=== PATIENT | male | born 1960 | race African-American/Black ===

== ENCOUNTER 2024-08-30 14:24 | Inpatient (IN) | payer MEDICARE, SELFPAY ==
[2024-08-30] VITALS (9 sets, daily range): BP systolic 114–161; BP diastolic 79–101; PULSE 24–125; RESP 18–28; TEMP 36.6–38.2; O2SAT 87–100; BMI 27.7
--- NOTE | ~2024-08-30 | XR_ITS ---
EXAMINATION: XR chest 1V portable DATE: 09/02/2024 09:20 INDICATION: Pneumonia. TECHNIQUE: A single frontal view of the chest was obtained. COMPARISON: Chest single view 08/30/2024, chest CT 08/30/2024 FINDINGS: There are airspace opacities in right lower lung zone and left mid and lower lung zones. No pleural effusion or pneumothorax. Cardiomegaly is noted. IMPRESSION: 1. Stable airspace opacities in right lower lung zone and left mid and lower lung zones, consistent w ith pneumonia. 2. Cardiomegaly. Reviewed, dictated and finalized at location B. IMPRESSION: 1. Stable airspace opacities in right lower lung zone and left mid and lower george ng zones, consistent with pneumonia. 2. Cardiomegaly.
--- NOTE | ~2024-08-30 | XR_ITS ---
EXAMINATION: XR chest 1V portable Exam Date/Time: 08/30/2024 15:30 CDT HISTORY: dyspnea Comparison: None. RESULT: Lines, tubes, and devices: None. Lungs and pleura: Low lung volumes. Patchy segmental left basilar and subsegmental right basilar airs pace disease. Cardiomediastinal silhouette: Stable. Other: No acute osseous or upper abdominal finding. IMPRESSION: Segmental left basilar atelectasis or pneumonia. Likely subsegmental right basilar atelectasis. Reviewed, dictated and finalized at location K. IMPRESSION: Segmental left basilar atelectasis or pneumonia. Likely subsegmental right basi lar atelectasis.
--- NOTE | ~2024-08-30 | CT_ITS ---
EXAMINATION: CTA chest PE protocol DATE: 08/30/2024 16:34 INDICATION: dyspnea, L chest pain, elevated d dimer TECHNIQUE: Computed tomography angiography (CTA) of the chest was performed with intravenous contrast timed to evaluate the pulmonary arteries. Coronal maximum intensity projection 3D-reconstructions we re created by the technologist. The dose-length product (DLP) was 463.27 mGy-cm. Automated exposure c ontrol and iterative reconstruction technique were employed. COMPARISON: X-ray chest, same date. FINDINGS: Lung parenchyma and airways: Segmental consolidation in the inferior lingula. Bilateral dependent ate lectasis. Patent airways. Pleura: Unremarkable. Thoracic inlet, axillae and chest wall: Unremarkable. Thoracic aorta: No significant dilation. No dissection. Mild calcified and noncalcified plaque. Mediastinum: Normal. Heart and pericardium: Mild cardiomegaly. Mild aortic valve calcification.. Coronary artery calcifications: Mild. Upper abdomen: No significant finding. Bones: No acute osseous finding. Bifid right fourth rib. Pulmonary arteries: Study quality: Motion and suboptimal contrast bolus limits evaluation of subsegme ntal pulmonary arteries. No central or segmental pulmonary emboli detected. IMPRESSION: Limited evaluation of the subsegmental pulmonary arteries. No CT evidence of acute central or segment al pulmonary embolus. Segmental lingular pneumonia. Reviewed, dictated and finalized at location K. IMPRESSION: Limited evaluation of the subsegmental pulmonary arteries. No CT evidence of ac tiffanie central or segmental pulmonary embolus. Segmental lingular pneumonia.
--- NOTE | 2024-08-30 14:28 | ECG_ITS ---
Test Date: 2024-08-30 14:32:14 Measurements Intervals [place] Rate: 123 P: 28 OR: 128 QRS: 10 QRSD: 84 T: 77 QT: 292 QTc: 418 Interpretive Statements SINUS TACHYCARDIA WITH OCCASIONAL VENTRICULAR PREMATURE COMPLEXES MINIMAL VOLTAGE CRITERIA FOR LVH, CONSIDER NORMAL VARIANT [MEETS CRITERIA IN ONE OF: R(aVL), S(V1), R(V5), R(V5/V6)+S(V1)] NONSPECIFIC T-WAVE ABNORMALITY ABNORMAL RHYTHM ECG No previous ECG available for comparison Electronically Signed On 08-31-2024 11:14:27 CDT by Jc Farnsworth M.D.
--- NOTE | 2024-08-30 14:44 | ED.SOB ---
HPI - SOB/Dyspnea General Chief Complaint: Shortness of Breath/Dyspnea <Juancho Kerr PA-C - Last Filed: 08/30/24 23:14> Stated Complaint: cough, fever <Juancho Kerr PA-C - Last Filed: 08/30/24 23:14> Time Seen by Provider: 08/30/24 14:27 <Juancho Kerr PA-C - Last Filed: 08/30/24 23:14> Source: patient <LISA Gary Last Filed: 08/30/24 23:14> Mode of arrival: ambulatory <LISA Gary Last Filed: 08/30/24 23:14> Limitations: no limitations <LISA Gary Last Filed: 08/30/24 23:14> History of Present Illness HPI Narrative: This is a 64-year-old male with PMH of HTN who presents to the ED via EMS for chief complaint of shortness of breath and chest pain onset today. Patient states that over the past 2 weeks he has had flu-like symptoms with increasing productive cough. States that today he ?spit up a little blood. ? States also that he has pain that comes and goes to the left side of his chest just inferior to the left pectoral area. States that it hurts worse in certain positions, when he coughs. Denies leg swelling, palpitations, headache, abdominal pain, nausea, vomiting. <LISA Gary Last Filed: 08/30/24 23:14> Related Data Home Medications: Home Medications ?Medication ?Instructions ?Recorded ?Confirmed ?Last Taken ?Type No Home Medications 08/30/24 08/30/24 Unknown History <LISA Gary Last Filed: 08/30/24 23:14> Allergies/Adverse Reactions: Allergies Allergy/AdvReac Type Severity Reaction Status Date / Time No Known Allergies Allergy Verified 08/30/24 14:45 <LISA Gary Last Filed: 08/30/24 23:14> Review of Systems Review of Systems: All systems as dictated in HPI <LISA Gary Last Filed: 08/30/24 23:14> [facility] Social History Social History: Social History Smoking status: Never smoker Alcohol intake: current Drinks per week: 1 Substance use: never Substance use type: does not use Do You Feel Safe in your Home?: Yes Lack of Transportation: No Lack of Food: Never True Current Housing: I Have Housing Concerned About Future Housing: No Difficulty Paying Gas/Electric Bills: No Difficulty Paying for Meds: No Currently Unemployed: No Education: Decline to Answer Difficulty w/ Childcare or Family Care: No Spiritual care concerns: No <Juancho Kerr PA-C - Last Filed: 08/30/24 23:14> Exam Narrative: GENERAL: Well-appearing, well-nourished, and in no acute distress. HEAD: Normocephalic, atraumatic. EYES: PERRLA and EOMI. ENT: Nares clear, no rhinorrhea or epistaxis. Mucous membranes moist. Oropharynx without tonsillar hypertrophy exudate or other lesions. NECK: Supple. No adenopathy or masses. CHEST: Mild increased work of breathing. Saturating 98% on room air. Coarse breath sounds heard bilaterally throughout all lung monson. HEART: Regular rate and rhythm. No murmur heard. Normal peripheral pulses. ABDOMEN: Soft, nontender, nondistended, normal active bowel sounds. MSK: Normal range of motion. No edema. SKIN: Warm, dry, no rash. NEURO: Alert and oriented x4. No focal deficits. PSYCH: Normal mood and affect. Bedside focused ultrasound does not show any B lines on bilateral lungs to suggest fluid overload. Cardiac exam shows tachycardic rate with good squeeze. IVC is moderately diminished caliber <Juancho Kerr PA-C - Last Filed: 08/30/24 23:14> Course MANAGING MANAGER/PA Physician Supervision Patient's HPI, Exam, and MDM were reviewed and I agreed with the workup and disposition done in the emergency department by the MLP. I was available for consultation, but was not directly involved with patient's care nor did I evaluate the patient. <Alxei Caraballo MD - Last Filed: 08/31/24 21:29> Vital Signs Vital signs: Vital Signs Temperature 36.8 C 08/30/24 14:41 Pulse Rate 124 H 08/30/24 14:41 Respiratory Rate 28 H 08/30/24 14:41 Blood Pressure 135/101 H 08/30/24 14:41 Pulse Oximetry 98 08/30/24 14:41 Oxygen Delivery Room Air 08/30/24 14:41 Temperature 36.4 C L 08/31/24 14:00 Pulse Rate 86 08/31/24 14:00 Respiratory Rate 16 08/31/24 14:00 Blood Pressure 147/89 H 08/31/24 14:00 Pulse Oximetry 93 08/31/24 14:00 Oxygen Delivery Nasal Cannula 08/31/24 09:25 Oxygen Flow Rate 2 08/31/24 09:25 <Juancho Kerr PA-C - Last Filed: 08/30/24 23:14> Vital Signs Temperature 36.8 C 08/30/24 14:41 Pulse Rate 124 H 08/30/24 14:41 Respiratory Rate 28 H 08/30/24 14:41 Blood Pressure 135/101 H 08/30/24 14:41 Pulse Oximetry 98 08/30/24 14:41 Oxygen Delivery Room Air 08/30/24 14:41 Temperature 36.4 C L 08/31/24 14:00 Pulse Rate 86 08/31/24 14:00 Respiratory Rate 16 08/31/24 14:00 Blood Pressure 147/89 H 08/31/24 14:00 Pulse Oximetry 93 08/31/24 14:00 Oxygen Delivery Nasal Cannula 08/31/24 09:25 Oxygen Flow Rate 2 08/31/24 09:25 <Alexi Caraballo MD - Last Filed: 08/31/24 21:29> MDM - SOB/Dyspnea MDM Narrative Medical decision making narrative: This is a 64-year-old male who presents to the ED for chief complaint of productive cough and flu symptoms for the past 2 weeks with development of chest pain and shortness of breath today. He arrives via EMS with vital signs showing tachycardia and tachypnea but saturating well on room air. Stable blood pressures in the 130s. Lab work shows elevated white count of 16.3. D-dimer elevated to 2.12. Troponin is normal. BMP is unremarkable. Viral swabs negative. Chest x-ray: IMPRESSION: Segmental left basilar atelectasis or pneumonia. Likely subsegmental right basilar atelectasis. Chest CTA: IMPRESSION: Limited evaluation of the subsegmental pulmonary arteries. No CT evidence of acute central or segmental pulmonary embolus. Segmental lingular pneumonia. On arrival patient did meet SIRS criteria with suspected pneumonia as septic source. He was started on sepsis bolus fluids, started on Rocephin and azithromycin after drawing blood cultures. He did end up becoming hypoxic on room air and is doing well on 2 L nasal cannula supplementation. He is resting comfortably on re-evaluation. Tachycardia slightly improved in pressure remains stable. Discussed the case with hospitalist MANAGING MANAGER, Leeanna who recommends admission under Dr. Abad. Patient is understanding and agreeable with this plan. <Juancho Kerr PA-C - Last Filed: 08/30/24 23:14> Lab Data Result diagrams: 08/31/24 08:53 08/31/24 08:53 <Juancho Kerr PA-C - Last Filed: 08/30/24 23:14> Labs: Lab Results 08/30/24 08/30/24 08/30/24 Range/Units 14:42 15:28 17:05 WBC 16.3 H (4.5-10.0) K/mm3 RBC 4.10 L (4.6-6.20) M/mm3 Hgb 12.8 L (14.0-18.0) g/dL Hct 39.6 L (42.0-52.0) % MCV 96.6 (80-100) fl MCH 31.2 (26-34) pg MCHC 32.3 (32-36) g/dl RDW 11.8 (11.5-14.5) % Plt Count 425 H (150-375) k/mm3 MPV 11.0 H (7.4-10.4) fl Immature Gran % (Auto) 0.7 H (0-0.5) % Neut % (Auto) 79.1 H (45.5-73.1) % Lymph % (Auto) 14.1 L (18.3-44.2) % [place] % (Auto) 5.7 (2.6-8.5) % Eos % (Auto) 0.2 (0-4.4) % Baso % (Auto) 0.2 (0.2-1.2) % Lymph # (Auto) 2.30 (0.9-3.2) K/mm3 [place] # (Auto) 0.9 H (0.1-0.6) K/mm3 Eos # (Auto) 0.0 (0-0.3) K/mm3 Baso # (Auto) 0.0 (0.0-0.1) K/mm3 Abs Immat Gran (auto) 0.11 H (0.00-0.031) K/mm3 Absolute Neuts (auto) 12.9 H (1.3-6.7) K/mm3 Absolute Nucleated RBC 0.000 (0.0-0.012) K/mm3 Nucleated RBC % 0.0 (0.0-0.2) % PT 15.1 H (11.1-14.7) Seconds INR 1.2 APTT 32.3 (22.3-36.8) Seconds D-Dimer 2.12 H (<0.48) ug/mL Sodium 136 L (137-145) mmol/L Potassium 4.0 (3.4-5.0) mmol/L Chloride 103 (98-107) mmol/L Carbon Dioxide 22 (22-30) mmol/L Anion Gap 11 (4-12) mmol/L BUN 17 (9-20) mg/dL Creatinine 1.04 (0.7-1.3) mg/dL Estim Creat Clear Calc 69 ml/min Estimated GFR > 60 (59 - ) Glucose 129 H (65-110) mg/dL Lactic Acid 2.6 H (0.7-2.0) mmol/L Calcium 8.4 (8.4-10.2) mg/dL Magnesium 2.2 (1.6-2.3) mg/dL Total Bilirubin 1.4 H (0.2-1.3) mg/dL AST 26 (17-59) U/L ALT 20 (6-50) U/L Alkaline Phosphatase 104 (38-126) U/L Troponin I < 0.012 (0.000-0.034) ng/mL NT-Pro-B Natriuret Pep 146 H (19.9-100) pg/mL Total Protein 8.0 (6.3-8.2) g/dL Albumin 4.0 (3.5-5.1) g/dL Lipase 64 (23-300) U/L Urine Color Dark yellow (Yellow) Urine Appearance Clear (Clear) Urine pH 5.5 (5.0-9.0) Ur Specific [place] > 1.045 H (1.001-1.035) Urine Protein 1+ H (Negative) mg/dL Urine Glucose (UA) Negative (Negative) mg/dL Urine Ketones Trace H (Negative) mg/dL Ur Blood (Man) Trace (Negative) Urine Nitrate Negative (Negative) Urine Bilirubin 1+ H (Negative) Urine Urobilinogen 4.0 H (<2.0) mg/dL Leukocyte Esterase Rfl Negative (Negative) RANDI/UL Urine RBC 0-2 (0-2) /hpf Urine WBC 0-5 (0-3) /hpf Ur Squamous Epith Cells None seen (Few) /hpf Urine Bacteria None seen /hpf Urine Casts 0-2 Influenza A (RT-PCR) Negative (Negative) Influenza B (RT-PCR) Negative (Negative) RSV (RT-PCR) Negative (Negative) SARS-CoV-2 RNA (RT-PCR) Negative (Negative) <Juancho Kerr PA-C - Last Filed: 08/30/24 23:14> Lab Results 08/30/24 08/30/24 08/30/24 Range/Units 14:42 15:28 17:05 WBC 16.3 H (4.5-10.0) K/mm3 RBC 4.10 L (4.6-6.20) M/mm3 Hgb 12.8 L (14.0-18.0) g/dL Hct 39.6 L (42.0-52.0) % MCV 96.6 (80-100) fl MCH 31.2 (26-34) pg MCHC 32.3 (32-36) g/dl RDW 11.8 (11.5-14.5) % Plt Count 425 H (150-375) k/mm3 MPV 11.0 H (7.4-10.4) fl Immature Gran % (Auto) 0.7 H (0-0.5) % Neut % (Auto) 79.1 H (45.5-73.1) % Lymph % (Auto) 14.1 L (18.3-44.2) % [place] % (Auto) 5.7 (2.6-8.5) % Eos % (Auto) 0.2 (0-4.4) % Baso % (Auto) 0.2 (0.2-1.2) % Lymph # (Auto) 2.30 (0.9-3.2) K/mm3 [place] # (Auto) 0.9 H (0.1-0.6) K/mm3 Eos # (Auto) 0.0 (0-0.3) K/mm3 Baso # (Auto) 0.0 (0.0-0.1) K/mm3 Abs Immat Gran (auto) 0.11 H (0.00-0.031) K/mm3 Absolute Neuts (auto) 12.9 H (1.3-6.7) K/mm3 Absolute Nucleated RBC 0.000 (0.0-0.012) K/mm3 Nucleated RBC % 0.0 (0.0-0.2) % PT 15.1 H (11.1-14.7) Seconds INR 1.2 APTT 32.3 (22.3-36.8) Seconds D-Dimer 2.12 H (<0.48) ug/mL Sodium 136 L (137-145) mmol/L Potassium 4.0 (3.4-5.0) mmol/L Chloride 103 (98-107) mmol/L Carbon Dioxide 22 (22-30) mmol/L Anion Gap 11 (4-12) mmol/L BUN 17 (9-20) mg/dL Creatinine 1.04 (0.7-1.3) mg/dL Estim Creat Clear Calc 69 ml/min Estimated GFR > 60 (59 - ) Glucose 129 H (65-110) mg/dL Lactic Acid 2.6 H (0.7-2.0) mmol/L Calcium 8.4 (8.4-10.2) mg/dL Magnesium 2.2 (1.6-2.3) mg/dL Total Bilirubin 1.4 H (0.2-1.3) mg/dL AST 26 (17-59) U/L ALT 20 (6-50) U/L Alkaline Phosphatase 104 (38-126) U/L Troponin I < 0.012 (0.000-0.034) ng/mL NT-Pro-B Natriuret Pep 146 H (19.9-100) pg/mL Total Protein 8.0 (6.3-8.2) g/dL Albumin 4.0 (3.5-5.1) g/dL Lipase 64 (23-300) U/L Urine Color Dark yellow (Yellow) Urine Appearance Clear (Clear) Urine pH 5.5 (5.0-9.0) Ur Specific [place] > 1.045 H (1.001-1.035) Urine Protein 1+ H (Negative) mg/dL Urine Glucose (UA) Negative (Negative) mg/dL Urine Ketones Trace H (Negative) mg/dL Ur Blood (Man) Trace (Negative) Urine Nitrate Negative (Negative) Urine Bilirubin 1+ H (Negative) Urine Urobilinogen 4.0 H (<2.0) mg/dL Leukocyte Esterase Rfl Negative (Negative) RANDI/UL Urine RBC 0-2 (0-2) /hpf Urine WBC 0-5 (0-3) /hpf Ur Squamous Epith Cells None seen (Few) /hpf Urine Bacteria None seen /hpf Urine Casts 0-2 Influenza A (RT-PCR) Negative (Negative) Influenza B (RT-PCR) Negative (Negative) RSV (RT-PCR) Negative (Negative) SARS-CoV-2 RNA (RT-PCR) Negative (Negative) <Alexi Caraballo MD - Last Filed: 08/31/24 21:29> Discharge Plan Discharge Clinical Impression: Lingular pneumonia <Juancho Kerr PA-C - Last Filed: 08/30/24 23:14> Patient Disposition: Still a Patient <Juancho Kerr PA-C - Last Filed: 08/30/24 23:14> Condition: Stable <Juancho Kerr PA-C - Last Filed: 08/30/24 23:14>
[2024-08-30 14:50] LABS: Basophils Percent Auto 0.2 % (0.2-1.2); Eosinophils Percent Auto 0.2 % (0-4.4); Hematocrit 39.6 % (42.0-52.0); Hemoglobin 12.8 g/dL (14.0-18.0); Immature Granulocyte Absolute 0.11 K/mm3 (0.00-0.031); Immature Granulocyte Percent A 0.7 % (0-0.5); Lymphocytes Percent Auto 14.1 % (18.3-44.2); Mean Corpuscular HGB Conc 32.3 g/dl (32-36); Mean Corpuscular Hemoglobin 31.2 pg (26-34); Mean Corpuscular Volume 96.6 fl (80-100); Monocytes Absolute Auto 0.9 K/mm3 (0.1-0.6); Monocytes Percent Auto 5.7 % (2.6-8.5); Neutrophils Absolute Auto 12.9 K/mm3 (1.3-6.7); Neutrophils Percent Auto 79.1 % (45.5-73.1); Platelet Count Result 425 k/mm3 (150-375); Red Cell Distribution Width 11.8 % (11.5-14.5); White Blood Count 16.3 K/mm3 (4.5-10.0)
[2024-08-30] MEDS: ONDANSETRON INJ 4 MG/2 ML VIAL IV PUSH (14:53)
[2024-08-30] MEDS: HYDROmorphone HCL INJ (*CRX) 1 MG/ML SYR 0.5 MG IV PUSH (14:53)
[2024-08-30] MEDS: SODIUM CHLORIDE 0.9% IV 1,000 ML 999 ML IV CONT ×2 (14:54)
[2024-08-30 14:56] LABS: Lactic Acid Reflex 2.6 mmol/L (0.7-2.0)
[2024-08-30 15:23] LABS: Influenza A QL RT-PCR Negative (Negative); Influenza B QL RT-PCR Negative (Negative); RSV RNA, RT-PCR Negative (Negative); SARS-CoV-2 RNA PCR Negative (Negative)
[2024-08-30 15:44] LABS: Alanine Aminotransferase 20 U/L (6-50); Alkaline Phosphatase 104 U/L (38-126); Anion Gap 11 mmol/L (4-12); Aspartate Amino Transferase 26 U/L (17-59); Bilirubin,Total 1.4 mg/dL (0.2-1.3); Blood Urea Nitrogen 17 mg/dL (9-20); Calcium 8.4 mg/dL (8.4-10.2); Carbon Dioxide 22 mmol/L (22-30); Chloride 103 mmol/L (98-107); Estimated CRCL calculation 69 ml/min; Estimated Glomerular Filt Rate > 60; Glucose 129 mg/dL (65-110); Lipase 64 U/L (23-300); Magnesium 2.2 mg/dL (1.6-2.3); Sodium 136 mmol/L (137-145)
[2024-08-30 15:46] LABS: INR 1.2; Prothrombin Time 15.1 Seconds (11.1-14.7)
[2024-08-30 15:47] LABS: Partial Thromboplastin Time 32.3 Seconds (22.3-36.8)
[2024-08-30 15:56] LABS: NT Pro B Type Natriuretic Pept 146 pg/mL (19.9-100); Troponin I < 0.012 ng/mL (0.000-0.034)
[2024-08-30] MEDS: AZITHROMYCIN 500 MG/NS 250 ML 500 MG/250 ML BAG 250 MG IVPB (15:57)
[2024-08-30 15:58] LABS: D Dimer 2.12 ug/mL (<0.48)
--- NOTE | 2024-08-30 16:43 | PC.NURSE ---
SPO2 87% on room air. 02 placed at 2l NC.
[2024-08-30] MEDS: SODIUM CHLORIDE 0.9% IV 750 ML 999 ML IV CONT (16:45)
[2024-08-30 17:15] LABS: Add Urine Microscopic? YES; Appearance Urine Clear (Clear); Bacteria Urine None Seen /hpf; Bilirubin Urine 1+ (Negative); Blood Urine Trace (Negative); Color Urine Dark Yellow (Yellow); Glucose Urine UA Negative (Negative); Ketones Urine Trace mg/dL (Negative); Leukocyte Esterase Ur Negative LEU/UL (Negative); Nitrate Urine Negative (Negative); Non Pathogenic Casts 0-2; Protein Urine 1+ mg/dL (Negative); RBC Urine 0-2 /hpf (0-2); Specific Grav Ur > 1.045 (1.001-1.035); Squamous Epithelial Cell Urine None Seen /hpf (Few); WBC Urine 0-5 /hpf (0-3); pH Urine 5.5 (5.0-9.0)
--- NOTE | 2024-08-30 17:33 | P.HP_ITS ---
H&P: HPI History of Present Illness Date/Time: 08/30/24 17:33 Chief Complaint: Shortness of breath Narrative: 64-year-old male past medical history of hypertension presents the hospital shortness breath. Patient was brought a.m. by EMS for shortness of breath and chest pain. He states that over the last 2 weeks he has been sick with flu-like symptoms, cough, and today started having bloody sputum. The chest pain is mostly when he coughs on his left side. Patient denies chills, nausea vomiting or diarrhea. In the ED has leukocytosis at 16.3, D-dimer of 2.12, lactic acid of 2.6, total bili of 1.4, proBNP of 146, UA is noninfective, influenza A/B, RSV, COVID negative. Chest x-ray shows Segmental left basilar atelectasis or pneumonia. Likely subsegmental right basilar atelectasis. Chest CT shows no evidence PE, with Segmental lingular pneumonia. Patient coughing up copious bloody sputum. Review of Systems Review of Systems: 12 systems were reviewed and are negativ e except for as per HPI. [facility] Social History Social History Smoking status: Never smoker Alcohol intake: current Drinks per week: 1 Substance use: never Substance use type: does not use Do You Feel Safe in your Home?: Yes Lack of Transportation: No Lack of Food: Never True Current Housing: I Have Housing Concerned About Future Housing: No Difficulty Paying Gas/Electric Bills: No Difficulty Paying for Meds: No Currently Unemployed: No Education: Decline to Answer Difficulty w/ Childcare or Family Care: No Spiritual care concerns: No Meds Home Medications and Allergies Home Medications ?Medication ?Instructions ?Recorded ?Confirmed ?Type No Home Medications 08/30/24 08/30/24 History Allergies Allergy/AdvReac Type Severity Reaction Status Date / Time No Known Allergies Allergy Verified 08/30/24 14:45 Vital Signs Vital Signs - 24 hr 08/30/24 14:41 08/30/24 16:01 08/30/24 16:42 Temperature 98.3 F Pulse Rate 124 H 24 L Respiratory Rate 28 H 24 H Blood Pressure 135/101 H 159/96 H Pulse Oximetry 98 97 87 L Oxygen Delivery Room Air Nasal Cannula Oxygen Flow Rate 2 08/30/24 16:46 Temperature Pulse Rate 125 H Respiratory Rate 28 H Blood Pressure 161/90 H Pulse Oximetry 97 Oxygen Delivery Oxygen Flow Rate Exam Narrative: General: well appearing, appears stated age. HEENT: normocephalic, atraumatic. Mucous membranes moist. EOMI, PERRLA, bilateral sclera anicteric, no conjunctival injection. Neck supple without JVD, lymphadenopathy, or bruit. Respiratory: Extremely coarse Cardiovascular: Regular rate and rhythm, normal S1-S2 upon ascultation. No murmurs, rubs, or clicks. PMI is nondisplaced, capillary refill less than 3 second. Abdomen: Soft, round, no pulsatile masses, nondistended and nontender. No reboun d, no guarding. No CVA tenderness, no hepatosplenomegaly. Bowel sounds present to all four quadrants. No high pitch or tinkling sounds, resonant to percussion. Extremities: No cyanosis, clubbing, or edema present. Pulses are palpable 2/2. Active ROM to all four extremities. Neuro: Alert and orientated x 4. PERRLA. Cranial nerves 2-12 intact without focal deficit. Skin: Warm, dry, and intact, without rash, erythema, or lesion. Psych: pleasant, cooperative, normal speech, normal affect, no hallucinations, no dysarthia H&P: Results Labs Labs: Short CBC 08/30/24 Range/Units 14:42 WBC 16.3 H (4.5-10.0) K/mm3 Hgb 12.8 L (14.0-18.0) g/dL Hct 39.6 L (42.0-52.0) % Plt Count 425 H (150-375) k/mm3 BMP 08/30/24 15:28 Sodium 136 L Potassium 4.0 Chloride 103 Carbon Dioxide 22 BUN 17 Creatinine 1.04 Glucose 129 H Calcium 8.4 Cardiac Enzymes 08/30/24 Range/Units 15:28 Troponin I < 0.012 (0.000-0.034) ng/mL Liver Function 08/30/24 Range/Units 15:28 Total Bilirubin 1.4 H (0.2-1.3) mg/dL AST 26 (17-59) U/L ALT 20 (6-50) U/L Alkaline Phosphatase 104 (38-126) U/L Albumin 4.0 (3.5-5.1) g/dL Urine 03/09/25 Range/Units 17:05 Urine Color Dark yellow (Yellow) Urine Appearance Clear (Clear) Urine pH 5.5 (5.0-9.0) Ur Specific [place] > 1.045 H (1.001-1.035) Urine Protein 1+ H (Negative) mg/dL Urine Glucose (UA) Negative (Negative) mg/dL Assessment and Plan Assessment and plan (1) Lingular pneumonia: Code(s): J18.9 - Pneumonia, unspecified organism Status: Acute Assessment and Plan: On levofloxacin (2) Sepsis: Code(s): A41.9 - Sepsis, unspecified organism Status: Acute Assessment and Plan: Patient received 3 L bolus Patient started on levofloxacin Repeat lactic resolved (3) Bloody sputum: Code(s): R04.2 - Hemoptysis Status: Acute Assessment and Plan: Sputum sample Pulmonology consulted Incentive spirometer Telemetry monitoring Quality VTE Prophylaxis VTE prophylaxis: mechanical ordered If No VTE Prophylaxis Answer both mechanical and pharmacologic: Reason no pharmacologic proph: medical contraindication Hospitalist MIPS Advance Care Plan I have confirmed that the patient's Advanced Care Plan is present, code status is documented, or surrogate decision maker is listed in patient medical record.: Yes Medication Reconciliation I have utilized all available resources to obtain, update and review the patients current medications (includes all prescriptions, OTC, herbals, cannabis, and nutritional supplements).: Yes
[2024-08-30 17:45] LABS: Reflex Lactic Acid Yes or No Add Lactic
[2024-08-30] MEDS: levoFLOXacin 750 MG/D5W 150 ML 750 MG/150 ML BAG 100 MG IVPB (17:52)
--- NOTE | 2024-08-30 18:41 | PC.NURSE ---
This patient, Jorge Banerjee, was admitted to Medical Room 343-01. Patient/family oriented to hospital policies and general routines including ID bracelet, bed and alarms, visiting hours, pain management, procedures, bathroom and other care routines, personal items, smoking policy, room service/diet, and visiting hours. Information on how to activate the Rapid Response Team has been discussed. Patient/Family are encouraged to report perceived risks to care and to ask questions if they do not understand what they are told or what they should do.
[2024-08-30 19:06] LABS: Lactic Acid 1.3 mmol/L (0.7-2.0)
[2024-08-30] MEDS: SODIUM CHLORIDE 0.9% IV 1,000 ML 125 ML IV CONT (20:42)
[2024-08-30] MEDS: guaiFENesin 600 MG/DEXTROMETHORPHAN 30 MG SR TAB 12 HR 2 TAB PO (23:29)
[2024-08-31] MEDS: SODIUM CHLORIDE 0.9% IV 1,000 ML 125 ML IV CONT (03:45)
[2024-08-31 06:50] VITALS: BP 152/94; PULSE 86; RESP 18; TEMP 36.3; O2SAT 97
[2024-08-31 08:00] VITALS: O2SAT 95
--- NOTE | 2024-08-31 08:42 | P.PNIM_ITS ---
Progress Note: A&P Assessment and Plan (1) Acute respiratory failure with hypoxia: Code(s): J96.01 - Acute respiratory failure with hypoxia Status: Acute Assessment and Plan: Patient hypoxic on room air with spo2 87%, placed on 2L NC. Likely secondary to patients pneumonia - Oxygen supplementation: 2L NC, wean as tolerated for spo2 > 90% - D dimer elevated and given patients tachycardia a chest cta was obtained, no PE noted - CXR: Segmental left basilar atelectasis or pneumonia. Likely subsegmental right basilar atelectasis. - Chest CTA: No CT evidence of acute central or segmental pulmonary embolus.S egmental lingular pneumonia. - IS Weaned to room air. Saturations stable. (2) Sepsis: Code(s): A41.9 - Sepsis, unspecified organism Status: Acute Assessment and Plan: Meets SIRS criteria: tachycardia, leukocytosis, lactic acidosis, fever - lactic acid: 2.6 > 1.3 - Received 3L bolus in the ED - suspected source: pneumonia - blood cultures drawn on 08/30/2024: pending - UA nonconcerning for infection - Viral panel negative - CXR: Segmental left basilar atelectasis or pneumonia. Likely subsegmental right basilar atelectasis. - Chest CTA: No CT evidence of acute central or segmental pulmonary embolus.Segmental lingular pneumonia. (3) Lingular pneumonia: Code(s): J18.9 - Pneumonia, unspecified organism Status: Acute Assessment and Plan: CXR: Segmental left basilar atelectasis or pneumonia. Likely subsegmental right basilar atelectasis. Chest CTA: No CT evidence of acute central or segmental pulmonary embolus.Segmental lingular pneumonia. - antibiotic: rocephin and levaquin started on 08/30 - Viral PCR: negative for Flu/COVID/RSV - legionella, mycoplasma and pneumococcal ordered - Oxygen supplementation: RA - Monitor vital signs, I&Os, neuro status and patient is a fall risk - Follow WBC, serum electrolytes, temperature curves and cultures - Send sputum cultures - Oxygen via NC; wean as tolerated. Keep SpO2 greater than 88% - Pulmonology consulted positive urine test for opioid and cocaine use, and the absence of any recent altered mental status, the antibiotic regimen of ceftriaxone (dose increased per pulm) and levofloxacin is deemed appropriate. (4) Bloody sputum: Code(s): R04.2 - Hemoptysis Status: Acute Assessment and Plan: Patient endorsing bloody sputum, notes that this has improved since admission Incentive spirometer Telemetry monitoring DVT ppx: SCD (5) Cocaine abuse: Code(s): F14.10 - Cocaine abuse, uncomplicated Status: Acute Assessment and Plan: Patient denying any drug use Positive urine test for opioid and cocaine use Patient was given dilaudid in the ED, possible opioids positive from this alone Time Spent With Patient Time with patient: 25 - 35 minutes Subjective Date/time seen: 08/31/24 08:42 Interval history: 64 year old male with past medical history of hypertension presents to the hospital for bloody sputum and shortness of breath. Patient is pleasant lying comfortably in bed. He appears increasingly antsy, constantly fidgeting. He denies history of smoking, drug, and alcohol use. UDS obtained and positive for cocaine and opiods. Of note patient was given dilaudid in the ER. Review of Systems Review of Systems: All systems reviewed & are unremarkable except as noted in HPI and below Exam Narrative: AF HR 86 RR 16 SpO2 93 BP 147/89 General: male in no acute respiratory distress who is nontoxic appearing fidgeting in bed, lying semi recumbent HEENT: Normocephalic. Atraumatic. Extraocular movement intact. Sclera clear and anicteric.No facial asymmetry. Chest: Lungs with crackles to auscultation on the left. CV: Heart was regular rate and rhythm. S1/S2. No murmurs, gallops, or rubs. Abd: Abdomen was soft. Nontender. Nondistended. Positive bowel sounds. No organomegaly or masses. Ext: No clubbing, cyanosis, or edema. Neuro: Patient is alert. Speech is clear. Objective Data Vital Signs Vital Signs: Vital Signs - 24 hr 08/30/24 14:41 08/30/24 16:01 08/30/24 16:42 Temperature 98.3 F Pulse Rate 124 H 24 L Respiratory Rate 28 H 24 H Blood Pressure 135/101 H 159/96 H Pulse Oximetry 98 97 87 L Oxygen Delivery Room Air Nasal Cannula Oxygen Flow Rate 2 08/30/24 16:46 08/30/24 18:03 08/30/24 18:59 Temperature 100.8 F H Pulse Rate 125 H 121 H 120 H Respiratory Rate 28 H 22 H 18 Blood Pressure 161/90 H 148/86 H 114/79 Pulse Oximetry 97 97 100 Oxygen Delivery Oxygen Flow Rate 08/30/24 20:00 08/30/24 21:28 08/30/24 22:34 Temperature 97.8 F 99.0 F Pulse Rate 114 H 94 Respiratory Rate 18 Blood Pressure 155/92 H Pulse Oximetry 96 96 Oxygen Delivery Nasal Cannula Oxygen Flow Rate 2 08/31/24 06:50 Temperature 97.4 F L Pulse Rate 86 Respiratory Rate 18 Blood Pressure 152/94 H Pulse Oximetry 97 Oxygen Delivery Oxygen Flow Rate Intake/Output Intake/Output: Intake & Output 08/28/24 08/29/24 08/31/24 08/31/24 23:59 23:59 00:59 23:59 Intake Total 3050 1581.3 Output Total 300 2300 Balance 2750 -718.7 Meds/Results Medications: Active Medications Generic Name Dose Route Start Last Admin Trade Name Freq PRN Reason Stop Dose Admin Guaifenesin/Dextromethorphan 2 tab 08/30/24 23:10 08/30/24 23:29 Guaifenesin 600 Mg/Dextromethorphan 30 Mg Sr Tab 12 Hr PO 2 tab Q12HR MAYA Administration Ceftriaxone Sodium 1 gm in 50 mls @ 100 mls/hr 08/31/24 16:00 Rocephin 1 Gm/Ns 50 Ml IVPB Q24H MAYA Sodium Chloride 1,000 mls @ 125 mls/hr 08/30/24 17:30 08/31/24 03:45 Normal Saline Iv IV CONT 125 mls/hr .Q8H MAYA Administration Levofloxacin/Dextrose 750 mg in 150 mls @ 100 mls/hr 08/30/24 21:00 08/30/24 17:52 Levaquin 750 Mg/D5w 150 Ml IVPB 100 mls/hr Q24H MAYA Administration Radiology Results: ITS Impressions Chest X-Ray 08/30/24 15:48 IMPRESSION: Segmental left basilar atelectasis or pneumonia. Likely subsegmental right basilar atelectasis. Chest CTA 08/30/24 16:53 IMPRESSION: Limited evaluation of the subsegmental pulmonary arteries. No CT evidence of acute central or segmental pulmonary embolus. Segmental lingular pneumonia. Labs Labs: Laboratory Results - last 24 hr 08/30/24 08/30/24 08/30/24 14:42 15:28 17:05 WBC 16.3 H RBC 4.10 L Hgb 12.8 L Hct 39.6 L MCV 96.6 MCH 31.2 MCHC 32.3 RDW 11.8 Plt Count 425 H MPV 11.0 H Immature Gran % (Auto) 0.7 H Neut % (Auto) 79.1 H Lymph % (Auto) 14.1 L [place] % (Auto) 5.7 Eos % (Auto) 0.2 Baso % (Auto) 0.2 Lymph # (Auto) 2.30 [place] # (Auto) 0.9 H Eos # (Auto) 0.0 Baso # (Auto) 0.0 Abs Immat Gran (auto) 0.11 H Absolute Neuts (auto) 12.9 H Absolute Nucleated RBC 0.000 Nucleated RBC % 0.0 PT 15.1 H INR 1.2 APTT 32.3 D-Dimer 2.12 H Sodium 136 L Potassium 4.0 Chloride 103 Carbon Dioxide 22 Anion Gap 11 BUN 17 Creatinine 1.04 Estim Creat Clear Calc 69 Estimated GFR > 60 Glucose 129 H Lactic Acid 2.6 H Calcium 8.4 Magnesium 2.2 Total Bilirubin 1.4 H AST 26 ALT 20 Alkaline Phosphatase 104 Troponin I < 0.012 NT-Pro-B Natriuret Pep 146 H Total Protein 8.0 Albumin 4.0 Lipase 64 Urine Color Dark yellow Urine Appearance Clear Urine pH 5.5 Ur Specific [place] > 1.045 H Urine Protein 1+ H Urine Glucose (UA) Negative Urine Ketones Trace H Ur Blood (Man) Trace Urine Nitrate Negative Urine Bilirubin 1+ H Urine Urobilinogen 4.0 H Leukocyte Esterase Rfl Negative Urine RBC 0-2 Urine WBC 0-5 Ur Squamous Epith Cells None seen Urine Bacteria None seen Urine Casts 0-2 Influenza A (RT-PCR) Negative Influenza B (RT-PCR) Negative RSV (RT-PCR) Negative SARS-CoV-2 RNA (RT-PCR) Negative 08/30/24 18:44 WBC RBC Hgb Hct MCV MCH MCHC RDW Plt Count MPV Immature Gran % (Auto) Neut % (Auto) Lymph % (Auto) [place] % (Auto) Eos % (Auto) Baso % (Auto) Lymph # (Auto) [place] # (Auto) Eos # (Auto) Baso # (Auto) Abs Immat Gran (auto) Absolute Neuts (auto) Absolute Nucleated RBC Nucleated RBC % PT INR APTT D-Dimer Sodium Potassium Chloride Carbon Dioxide Anion Gap BUN Creatinine Estim Creat Clear Calc Estimated GFR Glucose Lactic Acid 1.3 Calcium Magnesium Total Bilirubin AST ALT Alkaline Phosphatase Troponin I NT-Pro-B Natriuret Pep Total Protein Albumin Lipase Urine Color Urine Appearance Urine pH Ur Specific [place] Urine Protein Urine Glucose (UA) Urine Ketones Ur Blood (Man) Urine Nitrate Urine Bilirubin Urine Urobilinogen Leukocyte Esterase Rfl Urine RBC Urine WBC Ur Squamous Epith Cells Urine Bacteria Urine Casts Influenza A (RT-PCR) Influenza B (RT-PCR) RSV (RT-PCR) SARS-CoV-2 RNA (RT-PCR) Quality VTE Prophylaxis VTE prophylaxis: mechanical ordered
[2024-08-31 08:59] LABS: Hematocrit 33.8 % (42.0-52.0); Hemoglobin 10.7 g/dL (14.0-18.0); Mean Corpuscular HGB Conc 31.7 g/dl (32-36); Mean Corpuscular Hemoglobin 31.3 pg (26-34); Mean Corpuscular Volume 98.8 fl (80-100); Mean Platelet Volume 9.8 fl (7.4-10.4); Platelet Count Result 382 k/mm3 (150-375); Red Blood Count 3.42 M/mm3 (4.6-6.20); White Blood Count 16.9 K/mm3 (4.5-10.0)
[2024-08-31 09:25] VITALS: O2SAT 92
[2024-08-31 09:27] LABS: Alanine Aminotransferase 18 U/L (6-50); Albumin Level 3.4 g/dL (3.5-5.1); Alkaline Phosphatase 84 U/L (38-126); Anion Gap 9 mmol/L (4-12); Aspartate Amino Transferase 22 U/L (17-59); Bilirubin,Total 1.5 mg/dL (0.2-1.3); Blood Urea Nitrogen 10 mg/dL (9-20); Calcium 8.3 mg/dL (8.4-10.2); Carbon Dioxide 23 mmol/L (22-30); Chloride 108 mmol/L (98-107); Estimated CRCL calculation 86 ml/min; Estimated Glomerular Filt Rate > 60; Glucose 83 mg/dL (65-110); Potassium 3.8 mmol/L (3.4-5.0); Sodium 140 mmol/L (137-145)
[2024-08-31] MEDS: guaiFENesin 600 MG/DEXTROMETHORPHAN 30 MG SR TAB 12 HR 2 TAB PO ×2 (09:34→21:17)
[2024-08-31 12:30] LABS: Amphetamine Screen Urine Negative (Negative); Barbiturate Screen Urine Negative (Negative); Benzodiazepines Screen Urine Negative (Negative); Cannabinoid Screen Urine Negative (Negative); Cocaine Screen Urine Positive (Negative); Methadone Screen Urine Negative (Negative); Opiate Screen Urine Positive (Negative); Phencyclidine Screen Urine Negative (Negative)
--- NOTE | 2024-08-31 13:30 | PM.CNPUL ---
Assessment and Plan Assessment and plan (1) Lingular pneumonia: Code(s): J18.9 - Pneumonia, unspecified organism Status: Acute Assessment and Plan: This 64-year-old male patient presented with shortness of breath and bloody sputum. A chest CT scan indicated a lingular consolidation with air bronchogram, suggestive of bacterial pneumonia. The patient's hemoptysis is showing signs of improvement, and he is currently breathing on room air. Considering the positive urine test for opioid and cocaine use, and the absence of any recent altered mental status, the antibiotic regimen of ceftriaxone and levofloxacin is deemed appropriate. The ceftriaxone dosage has been increased to 2 g daily. We will continue to closely monitor the patient's respiratory status. Sequential Compression Devices (SCDs) should be used for DVT prophylaxis today, and we need to switch to subcutaneous heparin for prophylaxis once the hemoptysis has resolved. (2) Bloody sputum: Code(s): R04.2 - Hemoptysis Status: Acute History of Present Illness History of Present Illness Consult date: 08/31/24 Chief complaint: lingular pneumonia Narrative: This 64-year-old man presented with shortness of breath and hemoptysis. Patient was in his usual state of health until approximately a cock-up weeks ago when he started having what sounds like a flu-like illness with increasing cough and shortness of breath. He had no fever chills nausea vomiting or palpitations. Workup in the emergency room with chest CT showed lingular consolidation with air bronchogram suggestive of community-acquired pneumonia. Patient has been coughing up blood tinged sputum. Over the last 12 hours bloody sputum has cleared somewhat. The patient also has mild left-sided pleuritic chest pain. He is currently on room air. PCR for common viruses all negative. Urine tested positive for opiates and cocaine. Past medical history significant for hypertension. Review of Systems Review of Systems: All systems reviewed & are unremarkable except as noted in HPI and below (HPI and below) FORMERLY [facility], [facility] Social History Social History Smoking status: Never smoker Alcohol intake: current Drinks per week: 1 Substance use: never Substance use type: does not use Do You Feel Safe in your Home?: Yes Lack of Transportation: No Lack of Food: Never True Current Housing: I Have Housing Concerned About Future Housing: No Difficulty Paying Gas/Electric Bills: No Difficulty Paying for Meds: No Currently Unemployed: No Education: Decline to Answer Difficulty w/ Childcare or Family Care: No Spiritual care concerns: No Meds Home Medications and Allergies Home Medications ?Medication ?Instructions ?Recorded ?Confirmed ?Type No Home Medications 08/30/24 08/30/24 History Allergies Allergy/AdvReac Type Severity Reaction Status Date / Time No Known Allergies Allergy Verified 08/30/24 14:45 Vital Signs Vital Signs - 24 hr 08/30/24 14:41 08/30/24 16:01 08/30/24 16:42 Temperature 36.8 C Pulse Rate 124 H 24 L Respiratory Rate 28 H 24 H Blood Pressure 135/101 H 159/96 H Pulse Oximetry 98 97 87 L Oxygen Delivery Room Air Nasal Cannula Oxygen Flow Rate 2 08/30/24 16:46 08/30/24 18:03 08/30/24 18:59 Temperature 38.2 C H Pulse Rate 125 H 121 H 120 H Respiratory Rate 28 H 22 H 18 Blood Pressure 161/90 H 148/86 H 114/79 Pulse Oximetry 97 97 100 Oxygen Delivery Oxygen Flow Rate 08/30/24 20:00 08/30/24 21:28 08/30/24 22:34 Temperature 36.6 C 37.2 C Pulse Rate 114 H 94 Respiratory Rate 18 Blood Pressure 155/92 H Pulse Oximetry 96 96 Oxygen Delivery Nasal Cannula Oxygen Flow Rate 2 08/31/24 06:50 08/31/24 08:00 08/31/24 09:25 Temperature 36.3 C L Pulse Rate 86 Respiratory Rate 18 Blood Pressure 152/94 H Pulse Oximetry 97 95 92 Oxygen Delivery Room Air Nasal Cannula Oxygen Flow Rate 2 Exam Narrative: GENERAL APPEARANCE: Well developed, well nourished, alert and cooperative, and appears to be in no acute distress while on room air SKIN: Inspection of the skin reveals no rashes, ulcerations or petechiae. HEENT: Sclerae anicteric and conjunctivae pink and moist. Extraocular movements were intact and pupils were equal, round, and reactive to light. The oral mucosa, hard and soft palate, tongue and posterior pharynx were normal. NECK: Supple. There was no thyroid enlargement, and no tenderness, or masses were felt. CHEST: Normal AP diameter and normal contour without any kyphoscoliosis. LUNGS: Crackles left lateral chest CARDIAC: There was a regular rate and rhythm without any murmurs, gallops, rubs. ABDOMEN: Soft and nontender with normal bowel sounds. There was no organomegaly. LYMPH NODES: No lymphadenopathy was appreciated in the neck. EXTREMITIES: No cyanosis, clubbing or edema. NEUROLOGIC: Alert and oriented x 3. Normal affect. Results Laboratory Findings 08/31/24 08:53 08/31/24 08:53 ABG, PT/INR, D-dimer: PT/INR, D-dimer PT 15.1 Seconds (11.1-14.7) H 08/30/24 15:28 INR 1.2 08/30/24 15:28 D-Dimer 2.12 ug/mL (<0.48) H 08/30/24 15:28 Abnormal lab findings: Abnormal Labs 08/30/24 08/30/24 08/30/24 14:42 15:28 17:05 WBC 16.3 H RBC 4.10 L Hgb 12.8 L Hct 39.6 L MCHC Plt Count 425 H MPV 11.0 H Immature Gran % (Auto) 0.7 H Neut % (Auto) 79.1 H Lymph % (Auto) 14.1 L [place] # (Auto) 0.9 H Abs Immat Gran (auto) 0.11 H Absolute Neuts (auto) 12.9 H PT 15.1 H D-Dimer 2.12 H Sodium 136 L Chloride Glucose 129 H Lactic Acid 2.6 H Calcium Total Bilirubin 1.4 H NT-Pro-B Natriuret Pep 146 H Albumin Ur Specific [place] > 1.045 H Urine Protein 1+ H Urine Ketones Trace H Urine Bilirubin 1+ H Urine Urobilinogen 4.0 H Urine Opiates Screen Urine Cocaine Screen 08/31/24 08/31/24 08:53 11:41 WBC 16.9 H RBC 3.42 L Hgb 10.7 L Hct 33.8 L MCHC 31.7 L Plt Count 382 H MPV Immature Gran % (Auto) Neut % (Auto) Lymph % (Auto) [place] # (Auto) Abs Immat Gran (auto) Absolute Neuts (auto) PT D-Dimer Sodium Chloride 108 H Glucose Lactic Acid Calcium 8.3 L Total Bilirubin 1.5 H NT-Pro-B Natriuret Pep Albumin 3.4 L Ur Specific [place] Urine Protein Urine Ketones Urine Bilirubin Urine Urobilinogen Urine Opiates Screen Positive A Urine Cocaine Screen Positive A
[2024-08-31 14:00] VITALS: BP 147/89; PULSE 86; RESP 16; TEMP 36.4; O2SAT 93
[2024-08-31] MEDS: cefTRIAXone 2 GM/NS 100 ML 2 GM/100 ML BAG IVPB (15:55)
[2024-08-31 20:00] VITALS: PULSE 86; RESP 16; O2SAT 93
[2024-08-31] MEDS: levoFLOXacin 750 MG/D5W 150 ML 750 MG/150 ML BAG 100 MG IVPB (21:15)
[2024-08-31] MEDS: ACETAMINOPHEN 325 MG TABLET 650 MG PO (22:05)
[2024-08-31 22:53] VITALS: BP 140/78; PULSE 91; RESP 16; TEMP 36.7; O2SAT 95
[2024-09-01 05:48] LABS: Hematocrit 34.9 % (42.0-52.0); Hemoglobin 11.3 g/dL (14.0-18.0); Mean Corpuscular HGB Conc 32.4 g/dl (32-36); Mean Corpuscular Hemoglobin 31.3 pg (26-34); Mean Corpuscular Volume 96.7 fl (80-100); Platelet Count Result 396 k/mm3 (150-375); Red Blood Count 3.61 M/mm3 (4.6-6.20); Red Cell Distribution Width 11.8 % (11.5-14.5); White Blood Count 7.2 K/mm3 (4.5-10.0)
[2024-09-01 06:00] VITALS: BP 174/95; PULSE 80; RESP 18; TEMP 36.2; O2SAT 96
[2024-09-01 06:14] LABS: Alanine Aminotransferase 17 U/L (6-50); Albumin Level 3.1 g/dL (3.5-5.1); Alkaline Phosphatase 78 U/L (38-126); Anion Gap 7 mmol/L (4-12); Aspartate Amino Transferase 22 U/L (17-59); Bilirubin,Total 0.7 mg/dL (0.2-1.3); Blood Urea Nitrogen 9 mg/dL (9-20); Calcium 8.4 mg/dL (8.4-10.2); Carbon Dioxide 24 mmol/L (22-30); Chloride 109 mmol/L (98-107); Estimated CRCL calculation 88 ml/min; Estimated Glomerular Filt Rate > 60; Glucose 98 mg/dL (65-110); Potassium 4.1 mmol/L (3.4-5.0); Sodium 140 mmol/L (137-145)
--- NOTE | 2024-09-01 08:42 | P.PNIM_ITS ---
Progress Note: A&P Assessment and Plan (1) Acute respiratory failure with hypoxia: Code(s): J96.01 - Acute respiratory failure with hypoxia Status: Acute Assessment and Plan: Patient hypoxic on room air with spo2 87%, placed on 2L NC. Likely secondary to patients pneumonia - Oxygen supplementation: 2L NC, wean as tolerated for spo2 > 90% - D dimer elevated and given patients tachycardia a chest cta was obtained, no PE noted - CXR: Segmental left basilar atelectasis or pneumonia. Likely subsegmental right basilar atelectasis. - Chest CTA: No CT evidence of acute central or segmental pulmonary embolus.S egmental lingular pneumonia. - IS Weaned to room air. Saturations stable. (2) Sepsis: Code(s): A41.9 - Sepsis, unspecified organism Status: Acute Assessment and Plan: Meets SIRS criteria: tachycardia, leukocytosis, lactic acidosis, fever - lactic acid: 2.6 > 1.3 - Received 3L bolus in the ED - suspected source: pneumonia - blood cultures drawn on 08/30/2024: pending - UA nonconcerning for infection - Viral panel negative - CXR: Segmental left basilar atelectasis or pneumonia. Likely subsegmental right basilar atelectasis. - Chest CTA: No CT evidence of acute central or segmental pulmonary embolus.Segmental lingular pneumonia. WBC WNL. Vitals stable. Afebrile. Resolved. (3) Lingular pneumonia: Code(s): J18.9 - Pneumonia, unspecified organism Status: Acute Assessment and Plan: CXR: Segmental left basilar atelectasis or pneumonia. Likely subsegmental right basilar atelectasis. Chest CTA: No CT evidence of acute central or segmental pulmonary embolus.Segmental lingular pneumonia. - antibiotic: rocephin and levaquin started on 08/30 - Viral PCR: negative for Flu/COVID/RSV - legionella, mycoplasma and pneumococcal ordered - Oxygen supplementation: RA - Monitor vital signs, I&Os, neuro status and patient is a fall risk - Follow WBC, serum electrolytes, temperature curves and cultures - Send sputum cultures - Oxygen via NC; wean as tolerated. Keep SpO2 greater than 88% - Pulmonology consulted Positive urine test for opioid and cocaine use, and the absence of any recent altered mental status, the antibiotic regimen of ceftriaxone (dose increased per pulm) and levofloxacin is deemed appropriate. Ambulate patient. Anticipate discharge home within the next couple of days. (4) Bloody sputum: Code(s): R04.2 - Hemoptysis Status: Acute Assessment and Plan: Patient endorsing bloody sputum, notes that this has resolved since admission Incentive spirometer Telemetry monitoring DVT ppx: SCD (5) Cocaine abuse: Code(s): F14.10 - Cocaine abuse, uncomplicated Status: Acute Assessment and Plan: Patient originally denying drug use Positive urine test for opioid and cocaine use Patient was given dilaudid in the ED, possible opioids positive from this alone States he has been sober for 30 years, however on Saturday he snorted two lines while drinking with friends He states he plans on being sober moving forward and does not wish to move forward with assistance Time Spent With Patient Time with patient: 25 - 35 minutes Subjective Date/time seen: 09/01/24 08:42 Interval history: 64 year old male with past medical history of hypertension presents to the hospital for bloody sputum and shortness of breath. Patient is pleasant lying comfortably in bed. He has no complaints at this time denying chest pain, shortness of breath, palpitations, nausea/vomiting, and abdominal pain. UDS postive for cocaine. States he has been sober for 30 years, however on Saturday he snorted two lines while drinking with friends. He states he plans on being sober moving forward and does not wish to move forward with assistance. Patient evaluated by pulmonology, will continue antibiotics, ambulate patient, and start dvt ppx. Review of Systems Review of Systems: All systems reviewed & are unremarkable except as noted in HPI and below Exam Narrative: AF HR 80 RR 18 SpO2 96 BP 174/95 General: male in no acute respiratory distress who is nontoxic appearing fidgeting in bed, lying semi recumbent HEENT: Normocephalic. Atraumatic. Extraocular movement intact. Sclera clear and anicteric.No facial asymmetry. Chest: Lungs with crackles to auscultation on the left. CV: Heart was regular rate and rhythm. S1/S2. No murmurs, gallops, or rubs. Abd: Abdomen was soft. Nontender. Nondistended. Positive bowel sounds. Ext: No clubbing, cyanosis, or edema. Neuro: Patient is alert. Speech is clear. Objective Data Vital Signs Vital Signs: Vital Signs - 24 hr 08/31/24 09:25 08/31/24 14:00 08/31/24 20:00 Temperature 97.5 F L Pulse Rate 86 86 Respiratory Rate 16 16 Blood Pressure 147/89 H Pulse Oximetry 92 93 93 Oxygen Delivery Nasal Cannula Room Air Oxygen Flow Rate 2 08/31/24 22:53 09/01/24 06:00 Temperature 98.0 F 97.2 F L Pulse Rate 91 80 Respiratory Rate 16 18 Blood Pressure 140/78 174/95 H Pulse Oximetry 95 96 Oxygen Delivery Oxygen Flow Rate Intake/Output Intake/Output: Intake & Output 08/29/24 08/31/24 08/31/24 09/01/24 23:59 00:59 23:59 23:59 Intake Total 3200 3141.3 700 Output Total 300 3300 400 Balance 2900 -158.7 300 Meds/Results Medications: Active Medications Generic Name Dose Route Start Last Admin Trade Name Freq PRN Reason Stop Dose Admin Acetaminophen 650 mg 08/31/24 11:34 08/31/24 22:05 Acetaminophen 325 Mg Tablet PO 650 mg Q6H PRN Administration Mild Pain (1-3) or Fever Guaifenesin/Dextromethorphan 2 tab 08/30/24 23:10 08/31/24 21:17 Guaifenesin 600 Mg/Dextromethorphan 30 Mg Sr Tab 12 Hr PO 2 tab Q12HR MAYA Administration Levofloxacin/Dextrose 750 mg in 150 mls @ 100 mls/hr 08/30/24 21:00 08/31/24 22:45 Levaquin 750 Mg/D5w 150 Ml IVPB Infused Q24H MAYA Infusion Ceftriaxone Sodium 2 gm in 100 mls @ 200 mls/hr 08/31/24 16:00 08/31/24 16:25 Rocephin 2 Gm/Ns 100 Ml IVPB Infused Q24H MAYA Infusion Trazodone HCl 100 mg 08/31/24 22:30 Trazodone Hcl 50 Mg Tablet PO HS PRN Insomnia Radiology Results: ITS Impressions Chest X-Ray 08/30/24 15:48 IMPRESSION: Segmental left basilar atelectasis or pneumonia. Likely subsegmental right basilar atelectasis. Chest CTA 08/30/24 16:53 IMPRESSION: Limited evaluation of the subsegmental pulmonary arteries. No CT evidence of acute central or segmental pulmonary embolus. Segmental lingular pneumonia. Labs Labs: Laboratory Results - last 24 hr 08/31/24 08/31/24 09/01/24 08:53 11:41 05:23 WBC 16.9 H 7.2 RBC 3.42 L 3.61 L Hgb 10.7 L 11.3 L Hct 33.8 L 34.9 L MCV 98.8 96.7 MCH 31.3 31.3 MCHC 31.7 L 32.4 RDW 12.0 11.8 Plt Count 382 H 396 H MPV 9.8 10.0 Sodium 140 140 Potassium 3.8 4.1 Chloride 108 H 109 H Carbon Dioxide 23 24 Anion Gap 9 7 BUN 10 D 9 Creatinine 0.82 0.80 Estim Creat Clear Calc 86 88 Estimated GFR > 60 > 60 Glucose 83 98 Calcium 8.3 L 8.4 Total Bilirubin 1.5 H 0.7 AST 22 22 ALT 18 17 Alkaline Phosphatase 84 78 Total Protein 7.0 7.0 Albumin 3.4 L 3.1 L Urine Opiates Screen Positive A Urine Methadone Screen Negative Ur Barbiturates Screen Negative Ur Phencyclidine Scrn Negative Ur Amphetamine Screen Negative U Benzodiazepines Scrn Negative Urine Cocaine Screen Positive A U Cannabinoids Screen Negative Quality VTE Prophylaxis VTE prophylaxis: mechanical ordered
[2024-09-01] MEDS: guaiFENesin 600 MG/DEXTROMETHORPHAN 30 MG SR TAB 12 HR 2 TAB PO ×2 (08:43→20:36)
--- NOTE | 2024-09-01 10:39 | PM.PNPUL ---
Progress Note: A&P Assessment and Plan (1) Lingular pneumonia: Code(s): J18.9 - Pneumonia, unspecified organism Status: Acute Assessment and Plan: This 64-year-old male patient presented with shortness of breath and bloody sputum. A chest CT scan indicated a lingular consolidation with air bronchogram, suggestive of bacterial pneumonia. The patient's hemoptysis is showing signs of improvement, and he is currently breathing on room air. Considering the positive urine test for opioid and cocaine use, and the absence of any recent altered mental status, the antibiotic regimen of ceftriaxone and levofloxacin is deemed appropriate. The ceftriaxone dosage has been increased to 2 g daily. Over the last 24 hours the patient's respiratory status has been stable. The patient is afebrile breathing room air and has had no hemoptysis. White cell count is back into the normal range. Urine pneumococcal and Legionella antigen still pending. Plan: Continue with current regimen for now. Start DVT prophylaxis. Ambulate patient. Anticipate discharge home within the next couple of days. (2) Bloody sputum: Code(s): R04.2 - Hemoptysis Status: Acute (3) Acute respiratory failure with hypoxia: Code(s): J96.01 - Acute respiratory failure with hypoxia Status: Acute (4) Cocaine abuse: Code(s): F14.10 - Cocaine abuse, uncomplicated Status: Acute Subjective Date/time seen: 09/01/24 10:39 Interval history: No further hemoptysis. Patient doing better. Remains on room air; no fever chills Review of Systems Review of Systems: All systems reviewed & are unremarkable except as noted in HPI and below (HPI and below) Exam Narrative: GENERAL APPEARANCE: Well developed, well nourished, alert and cooperative, and appears to be in no acute distress while on room air SKIN: Inspection of the skin reveals no rashes, ulcerations or petechiae. HEENT: Sclerae anicteric and conjunctivae pink and moist. Extraocular movements were intact and pupils were equal, round, and reactive to light. The oral mucosa, hard and soft palate, tongue and posterior pharynx were normal. NECK: Supple. There was no thyroid enlargement, and no tenderness, or masses were felt. CHEST: Normal AP diameter and normal contour without any kyphoscoliosis. LUNGS: Crackles left lateral chest CARDIAC: There was a regular rate and rhythm without any murmurs, gallops, rubs. ABDOMEN: Soft and nontender with normal bowel sounds. There was no organomegaly. LYMPH NODES: No lymphadenopathy was appreciated in the neck. EXTREMITIES: No cyanosis, clubbing or edema. NEUROLOGIC: Alert and oriented x 3. Normal affect. Objective Data Vital Signs Vital Signs: Vital Signs - 24 hr 08/31/24 14:00 08/31/24 20:00 08/31/24 22:53 Temperature 36.4 C L 36.7 C Pulse Rate 86 86 91 Respiratory Rate 16 16 16 Blood Pressure 147/89 H 140/78 Pulse Oximetry 93 93 95 Oxygen Delivery Room Air 09/01/24 06:00 09/01/24 08:45 Temperature 36.2 C L Pulse Rate 80 Respiratory Rate 18 Blood Pressure 174/95 H Pulse Oximetry 96 Oxygen Delivery Room Air Intake/Output Intake/Output: Intake & Output 08/29/24 08/31/24 08/31/24 09/01/24 23:59 00:59 23:59 23:59 Intake Total 3200 3141.3 936 Output Total 300 3300 400 Balance 2900 -158.7 536 Meds/Results Medications: Active Medications Generic Name Dose Route Start Last Admin Trade Name Freq PRN Reason Stop Dose Admin Acetaminophen 650 mg 08/31/24 11:34 08/31/24 22:05 Acetaminophen 325 Mg Tablet PO 650 mg Q6H PRN Administration Mild Pain (1-3) or Fever Guaifenesin/Dextromethorphan 2 tab 08/30/24 23:10 09/01/24 08:43 Guaifenesin 600 Mg/Dextromethorphan 30 Mg Sr Tab 12 Hr PO 2 tab Q12HR MAYA Administration Levofloxacin/Dextrose 750 mg in 150 mls @ 100 mls/hr 08/30/24 21:00 08/31/24 22:45 Levaquin 750 Mg/D5w 150 Ml IVPB Infused Q24H MAYA Infusion Ceftriaxone Sodium 2 gm in 100 mls @ 200 mls/hr 08/31/24 16:00 08/31/24 16:25 Rocephin 2 Gm/Ns 100 Ml IVPB Infused Q24H MAYA Infusion Trazodone HCl 100 mg 08/31/24 22:30 Trazodone Hcl 50 Mg Tablet PO HS PRN Insomnia Radiology Results: ITS Impressions Chest X-Ray 08/30/24 15:48 IMPRESSION: Segmental left basilar atelectasis or pneumonia. Likely subsegmental right basilar atelectasis. Chest CTA 08/30/24 16:53 IMPRESSION: Limited evaluation of the subsegmental pulmonary arteries. No CT evidence of acute central or segmental pulmonary embolus. Segmental lingular pneumonia. Labs Labs: Laboratory Results - last 24 hr 08/31/24 09/01/24 11:41 05:23 WBC 7.2 RBC 3.61 L Hgb 11.3 L Hct 34.9 L MCV 96.7 MCH 31.3 MCHC 32.4 RDW 11.8 Plt Count 396 H MPV 10.0 Sodium 140 Potassium 4.1 Chloride 109 H Carbon Dioxide 24 Anion Gap 7 BUN 9 Creatinine 0.80 Estim Creat Clear Calc 88 Estimated GFR > 60 Glucose 98 Calcium 8.4 Total Bilirubin 0.7 AST 22 ALT 17 Alkaline Phosphatase 78 Total Protein 7.0 Albumin 3.1 L Urine Opiates Screen Positive A Urine Methadone Screen Negative Ur Barbiturates Screen Negative Ur Phencyclidine Scrn Negative Ur Amphetamine Screen Negative U Benzodiazepines Scrn Negative Urine Cocaine Screen Positive A U Cannabinoids Screen Negative
[2024-09-01 14:00] VITALS: BP 152/86; PULSE 90; RESP 16; TEMP 36.5; O2SAT 96
[2024-09-01] MEDS: cefTRIAXone 2 GM/NS 100 ML 2 GM/100 ML BAG IVPB (16:45)
[2024-09-01 19:58] VITALS: BP 151/90; PULSE 87; RESP 18; TEMP 36.8; O2SAT 95
[2024-09-01] MEDS: levoFLOXacin 750 MG/D5W 150 ML 750 MG/150 ML BAG 100 MG IVPB (20:36)
[2024-09-01] MEDS: ACETAMINOPHEN 325 MG TABLET 650 MG PO (22:08)
[2024-09-02 04:53] VITALS: BP 158/95; PULSE 79; RESP 17; TEMP 36.8; O2SAT 98
[2024-09-02 06:02] LABS: Hematocrit 37.2 % (42.0-52.0); Hemoglobin 11.8 g/dL (14.0-18.0); Mean Corpuscular HGB Conc 31.7 g/dl (32-36); Mean Corpuscular Hemoglobin 30.3 pg (26-34); Mean Corpuscular Volume 95.6 fl (80-100); Mean Platelet Volume 9.8 fl (7.4-10.4); Platelet Count Result 449 k/mm3 (150-375); Red Blood Count 3.89 M/mm3 (4.6-6.20); Red Cell Distribution Width 11.6 % (11.5-14.5); White Blood Count 6.1 K/mm3 (4.5-10.0)
[2024-09-02 06:10] LABS: Alanine Aminotransferase 24 U/L (6-50); Albumin Level 3.4 g/dL (3.5-5.1); Alkaline Phosphatase 83 U/L (38-126); Anion Gap 8 mmol/L (4-12); Aspartate Amino Transferase 33 U/L (17-59); Bilirubin,Total 0.7 mg/dL (0.2-1.3); Blood Urea Nitrogen 8 mg/dL (9-20); Calcium 8.7 mg/dL (8.4-10.2); Carbon Dioxide 24 mmol/L (22-30); Chloride 108 mmol/L (98-107); Estimated CRCL calculation 78 ml/min; Estimated Glomerular Filt Rate > 60; Glucose 94 mg/dL (65-110); Potassium 3.8 mmol/L (3.4-5.0); Sodium 140 mmol/L (137-145)
--- NOTE | 2024-09-02 08:56 | PM.PNPUL ---
Progress Note: A&P Assessment and Plan (1) Lingular pneumonia: Code(s): J18.9 - Pneumonia, unspecified organism Status: Acute Assessment and Plan: This 64-year-old male patient presented with shortness of breath and hemoptysis. A chest CT scan revealed a lingular consolidation with air bronchogram, indicative of bacterial pneumonia. The patient's respiratory status improved with the administration of two antibiotics, and the hemoptysis cleared with antibiotic treatment. A chest X-ray taken today demonstrated partial resolution of the pneumonia in the left lung, and the white blood cell count has returned to normal levels. Plan: Continue the current treatment regimen. Anticipate discharge home tomorrow morning. (2) Bloody sputum: Code(s): R04.2 - Hemoptysis Status: Acute (3) Acute respiratory failure with hypoxia: Code(s): J96.01 - Acute respiratory failure with hypoxia Status: Acute (4) Cocaine abuse: Code(s): F14.10 - Cocaine abuse, uncomplicated Status: Acute Subjective Date/time seen: 09/02/24 08:56 Interval history: Patient reports no new respiratory symptoms. He is afebrile, breathing room air. Review of Systems Review of Systems: All systems reviewed & are unremarkable except as noted in HPI and below (HPI and below) Exam Narrative: GENERAL APPEARANCE: Well developed, well nourished, alert and cooperative, and appears to be in no acute distress while on room air SKIN: Inspection of the skin reveals no rashes, ulcerations or petechiae. HEENT: Sclerae anicteric and conjunctivae pink and moist. Extraocular movements were intact and pupils were equal, round, and reactive to light. The oral mucosa, hard and soft palate, tongue and posterior pharynx were normal. NECK: Supple. There was no thyroid enlargement, and no tenderness, or masses were felt. CHEST: Normal AP diameter and normal contour without any kyphoscoliosis. LUNGS: Crackles left lateral chest CARDIAC: There was a regular rate and rhythm without any murmurs, gallops, rubs. ABDOMEN: Soft and nontender with normal bowel sounds. There was no organomegaly. LYMPH NODES: No lymphadenopathy was appreciated in the neck. EXTREMITIES: No cyanosis, clubbing or edema. NEUROLOGIC: Alert and oriented x 3. Normal affect. Objective Data Vital Signs Vital Signs: Vital Signs - 24 hr 09/01/24 14:00 09/01/24 19:58 09/02/24 04:53 Temperature 36.5 C 36.8 C 36.8 C Pulse Rate 90 87 79 Respiratory Rate 16 18 17 Blood Pressure 152/86 H 151/90 H 158/95 H Pulse Oximetry 96 95 98 Intake/Output Intake/Output: Intake & Output 08/31/24 08/31/24 09/01/24 09/02/24 00:59 23:59 23:59 23:59 Intake Total 3200 3141.3 3143 550 Output Total 300 3300 600 Balance 2900 -158.7 2543 550 Meds/Results Medications: Active Medications Generic Name Dose Route Start Last Admin Trade Name Freq PRN Reason Stop Dose Admin Acetaminophen 650 mg 08/31/24 11:34 09/01/24 22:08 Acetaminophen 325 Mg Tablet PO 650 mg Q6H PRN Administration Mild Pain (1-3) or Fever Enoxaparin Sodium 40 mg 09/01/24 09:00 09/01/24 14:57 Enoxaparin 40 Mg/0.4 Ml Syringe SUB-Q Not Given DAILY MAYA Guaifenesin/Dextromethorphan 2 tab 08/30/24 23:10 09/01/24 20:36 Guaifenesin 600 Mg/Dextromethorphan 30 Mg Sr Tab 12 Hr PO 2 tab Q12HR MAYA Administration Levofloxacin/Dextrose 750 mg in 150 mls @ 100 mls/hr 08/30/24 21:00 09/01/24 22:06 Levaquin 750 Mg/D5w 150 Ml IVPB Infused Q24H MAYA Infusion Ceftriaxone Sodium 2 gm in 100 mls @ 200 mls/hr 08/31/24 16:00 09/01/24 17:15 Rocephin 2 Gm/Ns 100 Ml IVPB Infused Q24H MAYA Infusion Trazodone HCl 100 mg 08/31/24 22:30 Trazodone Hcl 50 Mg Tablet PO HS PRN Insomnia Radiology Results: ITS Impressions Chest CTA 08/30/24 16:53 IMPRESSION: Limited evaluation of the subsegmental pulmonary arteries. No CT evidence of acute central or segmental pulmonary embolus. Segmental lingular pneumonia. Labs Labs: Laboratory Results - last 24 hr 09/02/24 05:28 WBC 6.1 RBC 3.89 L Hgb 11.8 L Hct 37.2 L MCV 95.6 MCH 30.3 MCHC 31.7 L RDW 11.6 Plt Count 449 H MPV 9.8 Sodium 140 Potassium 3.8 Chloride 108 H Carbon Dioxide 24 Anion Gap 8 BUN 8 L Creatinine 0.91 Estim Creat Clear Calc 78 Estimated GFR > 60 Glucose 94 Calcium 8.7 Total Bilirubin 0.7 AST 33 ALT 24 Alkaline Phosphatase 83 Total Protein 8.0 Albumin 3.4 L
[2024-09-02] MEDS: ENOXAPARIN 40 MG/0.4 ML SYRINGE SUB-Q (09:02)
[2024-09-02] MEDS: guaiFENesin 600 MG/DEXTROMETHORPHAN 30 MG SR TAB 12 HR 2 TAB PO ×2 (09:03→19:56)
--- NOTE | 2024-09-02 10:22 | P.PNIM_ITS ---
Progress Note: A&P Assessment and Plan (1) Acute respiratory failure with hypoxia: Code(s): J96.01 - Acute respiratory failure with hypoxia Status: Acute Assessment and Plan: Patient hypoxic on room air with spo2 87%, placed on 2L NC. Likely secondary to patients pneumonia - Oxygen supplementation: 2L NC, wean as tolerated for spo2 > 90% - D dimer elevated and given patients tachycardia a chest cta was obtained, no PE noted - CXR: Segmental left basilar atelectasis or pneumonia. Likely subsegmental right basilar atelectasis. - Chest CTA: No CT evidence of acute central or segmental pulmonary embolus.S egmental lingular pneumonia. - IS Weaned to room air. Saturations stable. stable- anticipate discharge tomorrow if stable overnight (2) Sepsis: Code(s): A41.9 - Sepsis, unspecified organism Status: Acute Assessment and Plan: Meets SIRS criteria: tachycardia, leukocytosis, lactic acidosis, fever - lactic acid: 2.6 > 1.3 - Received 3L bolus in the ED - suspected source: pneumonia - blood cultures drawn on 08/30/2024: pending - UA nonconcerning for infection - Viral panel negative - CXR: Segmental left basilar atelectasis or pneumonia. Likely subsegmental right basilar atelectasis. - Chest CTA: No CT evidence of acute central or segmental pulmonary embolus.Segmental lingular pneumonia. WBC WNL. Vitals stable. Afebrile. Resolved. (3) Lingular pneumonia: Code(s): J18.9 - Pneumonia, unspecified organism Status: Acute Assessment and Plan: CXR: Segmental left basilar atelectasis or pneumonia. Likely subsegmental right basilar atelectasis. Chest CTA: No CT evidence of acute central or segmental pulmonary embolus.Segmental lingular pneumonia. - antibiotic: rocephin and levaquin started on 08/30 - Viral PCR: negative for Flu/COVID/RSV - legionella, mycoplasma and pneumococcal ordered - Oxygen supplementation: RA - Monitor vital signs, I&Os, neuro status and patient is a fall risk - Follow WBC, serum electrolytes, temperature curves and cultures - Send sputum cultures - Oxygen via NC; wean as tolerated. Keep SpO2 greater than 88% - Pulmonology consulted Positive urine test for opioid and cocaine use, and the absence of any recent altered mental status, the antibiotic regimen of ceftriaxone (dose increased per pulm) and levofloxacin is deemed appropriate. Ambulate patient. Anticipate discharge home within the next couple of days. downgrade to PO antibiotics today (4) Bloody sputum: Code(s): R04.2 - Hemoptysis Status: Acute Assessment and Plan: Patient endorsing bloody sputum, notes that this has resolved since admission Incentive spirometer Telemetry monitoring DVT ppx: SCD reports no more episodes (5) Cocaine abuse: Code(s): F14.10 - Cocaine abuse, uncomplicated Status: Acute Assessment and Plan: Patient originally denying drug use Positive urine test for opioid and cocaine use Patient was given dilaudid in the ED, possible opioids positive from this alone States he has been sober for 30 years, however on Saturday he snorted two lines while drinking with friends He states he plans on being sober moving forward and does not wish to move forward with assistance Time Spent With Patient Time with patient: 25 - 35 minutes Subjective Date/time seen: 09/02/24 10:22 Interval history: Pt is seen and examined. Patient reports no new respiratory symptoms. He is afebrile, breathing room air. Per pulm. anticipate discharge tomorrow. Pt states that he was drug free for 30 years, but had few beers the other day and friend offered cocaine- so gave in. But planning on NOT using drugs again. Denies need for rehab resources. Review of Systems Review of Systems: 12 systems were reviewed and are negativ e except for as per HPI. All systems reviewed & are unremarkable except as noted in HPI and below Exam Narrative: General: male in no acute respiratory distress who is nontoxic appearing fidgeting in bed, lying semi recumbent HEENT: Normocephalic. Atraumatic. Extraocular movement intact. Sclera clear and anicteric.No facial asymmetry. Chest: Lungs with crackles to auscultation on the left. CV: Heart was regular rate and rhythm. S1/S2. No murmurs, gallops, or rubs. Abd: Abdomen was soft. Nontender. Nondistended. Positive bowel sounds. Ext: No clubbing, cyanosis, or edema. Neuro: Patient is alert. Speech is clear. Objective Data Vital Signs Vital Signs: Vital Signs - 24 hr 09/01/24 14:00 09/01/24 19:58 09/02/24 04:53 Temperature 97.7 F 98.2 F 98.2 F Pulse Rate 90 87 79 Respiratory Rate 16 18 17 Blood Pressure 152/86 H 151/90 H 158/95 H Pulse Oximetry 96 95 98 Oxygen Delivery 09/02/24 08:00 Temperature Pulse Rate Respiratory Rate Blood Pressure Pulse Oximetry Oxygen Delivery Room Air Intake/Output Intake/Output: Intake & Output 08/31/24 08/31/24 09/01/24 09/02/24 00:59 23:59 23:59 23:59 Intake Total 3200 3141.3 3143 550 Output Total 300 3300 600 Balance 2900 -158.7 2543 550 Meds/Results Medications: Active Medications Generic Name Dose Route Start Last Admin Trade Name Freq PRN Reason Stop Dose Admin Acetaminophen 650 mg 08/31/24 11:34 09/01/24 22:08 Acetaminophen 325 Mg Tablet PO 650 mg Q6H PRN Administration Mild Pain (1-3) or Fever Enoxaparin Sodium 40 mg 09/01/24 09:00 09/02/24 09:02 Enoxaparin 40 Mg/0.4 Ml Syringe SUB-Q 40 mg DAILY MAYA Administration Guaifenesin/Dextromethorphan 2 tab 08/30/24 23:10 09/02/24 09:03 Guaifenesin 600 Mg/Dextromethorphan 30 Mg Sr Tab 12 Hr PO 2 tab Q12HR MAYA Administration Levofloxacin/Dextrose 750 mg in 150 mls @ 100 mls/hr 08/30/24 21:00 09/01/24 22:06 Levaquin 750 Mg/D5w 150 Ml IVPB Infused Q24H MAYA Infusion Ceftriaxone Sodium 2 gm in 100 mls @ 200 mls/hr 08/31/24 16:00 09/01/24 17:15 Rocephin 2 Gm/Ns 100 Ml IVPB Infused Q24H MAYA Infusion Trazodone HCl 100 mg 08/31/24 22:30 Trazodone Hcl 50 Mg Tablet PO HS PRN Insomnia Radiology Results: ITS Impressions Chest CTA 08/30/24 16:53 IMPRESSION: Limited evaluation of the subsegmental pulmonary arteries. No CT evidence of acute central or segmental pulmonary embolus. Segmental lingular pneumonia. Chest X-Ray 09/02/24 09:25 IMPRESSION: 1. Stable airspace opacities in right lower lung zone and left mid and lower lung zones, consistent with pneumonia. 2. Cardiomegaly. Labs Labs: Laboratory Results - last 24 hr 09/02/24 05:28 WBC 6.1 RBC 3.89 L Hgb 11.8 L Hct 37.2 L MCV 95.6 MCH 30.3 MCHC 31.7 L RDW 11.6 Plt Count 449 H MPV 9.8 Sodium 140 Potassium 3.8 Chloride 108 H Carbon Dioxide 24 Anion Gap 8 BUN 8 L Creatinine 0.91 Estim Creat Clear Calc 78 Estimated GFR > 60 Glucose 94 Calcium 8.7 Total Bilirubin 0.7 AST 33 ALT 24 Alkaline Phosphatase 83 Total Protein 8.0 Albumin 3.4 L Quality VTE Prophylaxis VTE prophylaxis: mechanical ordered
[2024-09-02] MEDS: AMOXICILLIN/CLAVULANATE K 875-125 MG TAB 1 TABLET PO ×2 (12:43→19:56)
[2024-09-02 14:00] VITALS: BP 153/93; PULSE 92; RESP 18; O2SAT 94
[2024-09-02] MEDS: levoFLOXacin 750 MG TABLET PO (19:55)
[2024-09-02 20:12] VITALS: BP 155/91; PULSE 88; RESP 17; TEMP 36.8; O2SAT 98
[2024-09-02] MEDS: traZODone HCL 50 MG TABLET 100 MG PO (21:41)
[2024-09-02] MEDS: ACETAMINOPHEN 325 MG TABLET 650 MG PO (21:42)
[2024-09-03 04:30] VITALS: BP 158/92; PULSE 79; RESP 17; TEMP 36.8; O2SAT 94
[2024-09-03 05:37] LABS: Hematocrit 35.9 % (42.0-52.0); Hemoglobin 11.7 g/dL (14.0-18.0); Mean Corpuscular HGB Conc 32.6 g/dl (32-36); Mean Corpuscular Hemoglobin 30.9 pg (26-34); Mean Corpuscular Volume 94.7 fl (80-100); Mean Platelet Volume 9.6 fl (7.4-10.4); Platelet Count Result 461 k/mm3 (150-375); Red Blood Count 3.79 M/mm3 (4.6-6.20); Red Cell Distribution Width 11.5 % (11.5-14.5); White Blood Count 5.4 K/mm3 (4.5-10.0)
[2024-09-03 05:48] LABS: Alanine Aminotransferase 35 U/L (6-50); Albumin Level 3.3 g/dL (3.5-5.1); Alkaline Phosphatase 73 U/L (38-126); Anion Gap 9 mmol/L (4-12); Aspartate Amino Transferase 46 U/L (17-59); Bilirubin,Total 0.7 mg/dL (0.2-1.3); Blood Urea Nitrogen 9 mg/dL (9-20); Calcium 8.9 mg/dL (8.4-10.2); Carbon Dioxide 24 mmol/L (22-30); Chloride 108 mmol/L (98-107); Estimated CRCL calculation 73 ml/min; Estimated Glomerular Filt Rate > 60; Glucose 90 mg/dL (65-110); Potassium 3.7 mmol/L (3.4-5.0); Sodium 141 mmol/L (137-145)
--- NOTE | 2024-09-03 07:56 | P.DS_ITS ---
DS: Admitting Diagnosis Discharge Date 09/03 Admitting Diagnosis sob, hemoptysis DS: Discharge Diagnosis Discharge Diagnosis (1) Acute respiratory failure with hypoxia: Code(s): J96.01 - Acute respiratory failure with hypoxia Status: Acute (2) Sepsis: Code(s): A41.9 - Sepsis, unspecified organism Status: Acute (3) Lingular pneumonia: Code(s): J18.9 - Pneumonia, unspecified organism Status: Acute (4) Bloody sputum: Code(s): R04.2 - Hemoptysis Status: Acute (5) Cocaine abuse: Code(s): F14.10 - Cocaine abuse, uncomplicated Status: Acute DS: Summary Hospital Course Hospital Course: This 64-year-old male patient presented with shortness of breath and hemoptysis. A chest CT scan revealed a lingular consolidation with air bronchogram, indicative of bacterial pneumonia. The patient's respiratory status improved with the administration of two antibiotics, and the hemoptysis cleared with antibiotic treatment. A chest X-ray taken today demonstrated partial resolution of the pneumonia in the left lung, and the white blood cell count has returned to normal levels. Pulm was consulted. Pt was on IV antibiotics: - rocephin and levaquin started on 08/30. Switched to PO on 09/02 Levaquin and Augmentin - Viral PCR: negative for Flu/COVID/RSV - legionella, mycoplasma and pneumococcal ordered - Oxygen supplementation: RA - Oxygen via NC; wean as tolerated. Keep SpO2 greater than 88%- currently on RA - hemolysis resolved # Sepsis: Meets SIRS criteria: tachycardia, leukocytosis, lactic acidosis, fever - lactic acid: 2.6 > 1.3 - Received 3L bolus in the ED - suspected source: pneumonia - blood cultures drawn on 08/30/2024: negative - Viral panel negative - CXR: Segmental left basilar atelectasis or pneumonia. Likely subsegmental right basilar atelectasis. - Chest CTA: No CT evidence of acute central or segmental pulmonary embolus.Segmental lingular pneumonia. # cocaine use States he has been sober for 30 years, however on Saturday he snorted two lines while drinking with friends He states he plans on being sober moving forward and does not wish to move forward with assistance Status at Discharge Functional status at discharge: independent ambulation Overall status at discharge: patient is progressing back to baseline Time Spent with Patient Time attestation: Total time spent providing and/or coordinating discharge services: Time spent: Greater than 30 minutes Exam Narrative: General: male in no acute respiratory distress who is nontoxic appearing fidgeting in bed, lying semi recumbent HEENT: Normocephalic. Atraumatic. Extraocular movement intact. Sclera clear and anicteric.No facial asymmetry. Chest: Lungs with crackles to auscultation on the left. CV: Heart was regular rate and rhythm. S1/S2. No murmurs, gallops, or rubs. Abd: Abdomen was soft. Nontender. Nondistended. Positive bowel sounds. Ext: No clubbing, cyanosis, or edema. Neuro: Patient is alert. Speech is clear. Const: General: comfortable DS: Data Data Completed and Pending Completed studies during hospitalization: chest xray, chest cta Labs on day of discharge: Labs from last 24 hours 09/03/24 05:14 WBC 5.4 RBC 3.79 L Hgb 11.7 L Hct 35.9 L MCV 94.7 MCH 30.9 MCHC 32.6 RDW 11.5 Plt Count 461 H MPV 9.6 Sodium 141 Potassium 3.7 Chloride 108 H Carbon Dioxide 24 Anion Gap 9 BUN 9 Creatinine 0.98 Estim Creat Clear Calc 73 Estimated GFR > 60 Glucose 90 Calcium 8.9 Total Bilirubin 0.7 AST 46 ALT 35 Alkaline Phosphatase 73 Total Protein 7.0 Albumin 3.3 L Preliminary micro results at discharge 08/30/24 23:41 Sputum Culture - Preliminary Sputum 08/30/24 15:07 Blood Culture - Preliminary Blood 08/30/24 15:28 Blood Culture - Preliminary Blood Discharge Plan Discharge Attending physician on discharge: Diane Albert Consulting providers: Fareed Gongora; Andres Suh Discharging Clinician: Ila Robles Patient Disposition: Home, Self-Care Activity: as tolerated Diet: as tolerated Discharge Instructions: Please finish your antibiotics: i will send 4 more doses of augment (for two more days) and levaquin- take that once a day on 09/04 and 09/06). Discharge disposition: Patient admitted to the hospital for hypoxia (low oxygen levels) secondary to pneumonia Weaned back to room air during admission Take medications as prescribed Monitor blood pressures Take caution while standing, rising, or moving Change positions slowly taking a break between each position change If you standing feel dizzy sit back down and take a break Strongly encourage cocaine cessation Encouraged to continue with yearly vaccinations Return to the emergency department if he developed sudden shortness of breath, chest pain, nausea, vomiting, upset stomach or intractable diarrhea Return to the emergency department if you develop fever greater than 101.5 Follow-up with the primary care physician within 1-2 weeks Attached is information to the primary care provider online marketing specialist Thank you for [facility] for your healthcare needs Patient Instructions: Antibiotic Form Patient Language: Moldovan Stand Alone Forms: General Discharge Information Follow-up/Referrals: Fareed Gongora MD [Physician] - 1 Week Discharge Medications: New amoxicillin-pot clavulanate 875-125 mg tablet 1 tablet PO Q12H Qty: 4 0RF Rx Instructions: take for two more days to complete the treatment levofloxacin 750 mg tablet 750 mg PO DAILY 2 Days Qty: 2 0RF Rx Instructions: take on 09/04 and 09/06 to complete the course Date of admission: 08/30/24 18:29 Primary Care Provider: PHYSICIAN,FARM MANAGEMENT SUPERVISOR Admitting Provider: Patti Abad Attending physician on admission: Alfreda Gallagher Condition: Stable Quality VTE Prophylaxis VTE prophylaxis: mechanical ordered Hospitalist MIPS Heart Failure (Exclusion) Patient has history of Heart Transplant or Left Ventricular Assistive Device?: No IF YES, STOP HERE Heart Failure (Qualifier) Patient has current or prior documentation of LVEF less than or equal to 40%, or mod/servere depressed LVSF?: No IF NO, STOP HERE
--- NOTE | 2024-09-03 09:43 | PM.PNPUL ---
Progress Note: A&P Assessment and Plan (1) Lingular pneumonia: Code(s): J18.9 - Pneumonia, unspecified organism Status: Acute Assessment and Plan: This 64-year-old male patient presented with shortness of breath and hemoptysis. A chest CT scan revealed a lingular consolidation with air bronchogram, indicative of bacterial pneumonia. The patient's respiratory status improved with the administration of two antibiotics, and the hemoptysis cleared with antibiotic treatment. A chest X-ray taken today demonstrated partial resolution of the pneumonia in the left lung, and the white blood cell count has returned to normal levels. Plan: The patient is cleared for discharge from a respiratory standpoint. The following medication regimen should be continued: Levofloxacin: 750 mg for an additional 5 days. Augmentin: Continue current dose for an additional 8 days. The patient has been provided with the contact information for the pulmonary clinic and advised to schedule an appointment within the next 3-4 weeks. It was also communicated to the patient that a follow-up chest X-ray will be necessary to confirm the resolution of the left lung consolidation. The patient acknowledged understanding of these instructions. I will now sign off. Please feel free to call with any questions. (2) Bloody sputum: Code(s): R04.2 - Hemoptysis Status: Acute (3) Acute respiratory failure with hypoxia: Code(s): J96.01 - Acute respiratory failure with hypoxia Status: Acute (4) Cocaine abuse: Code(s): F14.10 - Cocaine abuse, uncomplicated Status: Acute Subjective Date/time seen: 09/03/24 09:43 Interval history: Patient has no new respiratory symptoms. Continues to have mild cough nonproductive. Remains on room air Review of Systems Review of Systems: All systems reviewed & are unremarkable except as noted in HPI and below (HPI and below) Exam Narrative: GENERAL APPEARANCE: Well developed, well nourished, alert and cooperative, and appears to be in no acute distress while on room air SKIN: Inspection of the skin reveals no rashes, ulcerations or petechiae. HEENT: Sclerae anicteric and conjunctivae pink and moist. Extraocular movements were intact and pupils were equal, round, and reactive to light. The oral mucosa, hard and soft palate, tongue and posterior pharynx were normal. NECK: Supple. There was no thyroid enlargement, and no tenderness, or masses were felt. CHEST: Normal AP diameter and normal contour without any kyphoscoliosis. LUNGS: Crackles left lateral chest CARDIAC: There was a regular rate and rhythm without any murmurs, gallops, rubs. ABDOMEN: Soft and nontender with normal bowel sounds. There was no organomegaly. LYMPH NODES: No lymphadenopathy was appreciated in the neck. EXTREMITIES: No cyanosis, clubbing or edema. NEUROLOGIC: Alert and oriented x 3. Normal affect. Objective Data Vital Signs Vital Signs: Vital Signs - 24 hr 09/02/24 14:00 09/02/24 20:00 09/02/24 20:12 Temperature 36.8 C Pulse Rate 92 88 Respiratory Rate 18 17 Blood Pressure 153/93 H 155/91 H Pulse Oximetry 94 98 Oxygen Delivery Room Air 09/03/24 04:30 Temperature 36.8 C Pulse Rate 79 Respiratory Rate 17 Blood Pressure 158/92 H Pulse Oximetry 94 Oxygen Delivery Intake/Output Intake/Output: Intake & Output 08/31/24 09/01/24 09/02/24 09/03/24 23:59 23:59 23:59 23:59 Intake Total 3141.3 3143 1820 450 Output Total 3300 600 400 Balance -158.7 2543 1820 50 Meds/Results Medications: Active Medications Generic Name Dose Route Start Last Admin Trade Name Freq PRN Reason Stop Dose Admin Acetaminophen 650 mg 08/31/24 11:34 09/02/24 21:42 Acetaminophen 325 Mg Tablet PO 650 mg Q6H PRN Administration Mild Pain (1-3) or Fever Amoxicillin/Clavulanate Potassium 1 tablet 09/02/24 12:00 09/02/24 19:56 Amoxicillin/Clavulanate K 875-125 Mg Tab PO 1 tablet Q12HR MAYA Administration Enoxaparin Sodium 40 mg 09/01/24 09:00 09/02/24 09:02 Enoxaparin 40 Mg/0.4 Ml Syringe SUB-Q 40 mg DAILY MAYA Administration Guaifenesin/Dextromethorphan 2 tab 08/30/24 23:10 09/02/24 19:56 Guaifenesin 600 Mg/Dextromethorphan 30 Mg Sr Tab 12 Hr PO 2 tab Q12HR MAYA Administration Levofloxacin 750 mg 09/02/24 21:00 09/02/24 19:55 Levofloxacin 750 Mg Tablet PO 750 mg Q24H MAYA Administration Trazodone HCl 100 mg 08/31/24 22:30 09/02/24 21:41 Trazodone Hcl 50 Mg Tablet PO 100 mg HS PRN Administration Insomnia Radiology Results: ITS Impressions Chest CTA 08/30/24 16:53 IMPRESSION: Limited evaluation of the subsegmental pulmonary arteries. No CT evidence of acute central or segmental pulmonary embolus. Segmental lingular pneumonia. Chest X-Ray 09/02/24 09:25 IMPRESSION: 1. Stable airspace opacities in right lower lung zone and left mid and lower lung zones, consistent with pneumonia. 2. Cardiomegaly. Labs Labs: Laboratory Results - last 24 hr 09/03/24 05:14 WBC 5.4 RBC 3.79 L Hgb 11.7 L Hct 35.9 L MCV 94.7 MCH 30.9 MCHC 32.6 RDW 11.5 Plt Count 461 H MPV 9.6 Sodium 141 Potassium 3.7 Chloride 108 H Carbon Dioxide 24 Anion Gap 9 BUN 9 Creatinine 0.98 Estim Creat Clear Calc 73 Estimated GFR > 60 Glucose 90 Calcium 8.9 Total Bilirubin 0.7 AST 46 ALT 35 Alkaline Phosphatase 73 Total Protein 7.0 Albumin 3.3 L
[2024-09-03] MEDS: AMOXICILLIN/CLAVULANATE K 875-125 MG TAB 1 TABLET PO (10:02)
[2024-09-03] MEDS: guaiFENesin 600 MG/DEXTROMETHORPHAN 30 MG SR TAB 12 HR 2 TAB PO (10:02)
[2024-09-03 13:59] LABS: Pneumococcal Antigen Urine NOT DETECTED
[2024-09-10 00:49] LABS: Legionella pneumophila Ag Ur NOT DETECTED
== END 2024-09-03 10:50 | disposition home or self-care (01) | DRG 871 ==
LOC: ANHED 14:53 → ANH3MED 17:43
PROVIDERS: Student in an Organized Health Care Education/Training Program; Admitting Provider Internal Medicine; Emergency Provider Physician Assistant; Visit Provider Nurse Practitioner
DX: A41.9 Sepsis, unspecified organism (principal); J18.9 Pneumonia, unspecified organism; R04.2 Hemoptysis; I10 Essential (primary) hypertension; F14.10 Cocaine abuse, uncomplicated
CPT/HCPCS: 36415; 71045; 71275; 80053; 80307; 81001; 83605; 83690; 83735; 83880; 84484; 85025; 85027; 85380; 85610; 85730; 86738; 87040; 87070; 87205; 87449; 87637; 87899; 93005; 96361; 96365; 96366; 96367; 96368; 96375; 99285; A9270; G0378; J0456; J0696; J1171; J1650; J1956; J2405; J7030; Q9967

== ENCOUNTER 2025-03-07 17:48 | Emergency (ER) | payer MEDICARE, SELFPAY ==
--- OUTSIDE RECORDS SUMMARY | 2025-01-12 09:00 | XMS_ITS ---
Author Organization [facility] Address [address] [address] Care Team Providers Care Dehydrating Press Operator Name Role Phone Sam Deng Primary Care Provider Allergies No Known Allergies REASON FOR VISIT New Patient - c/o SOB, wheezing and fatigue x 3 month Social History Tobacco Use: Social History Observation Description Date Details (start date - stop date) Never Smoker NA - NA Tobacco Control (Standard) Question Answer Notes Tobacco use: Nonsmoker AUDIT-C (Standard) Question Answer Notes Did you have a drink contain ing alcohol in the past year? Yes How often did you have a dri nk containing alcohol in the past year? Monthly or less (1 point) How many drinks did you have on a typical day when you were drinking in the past year? 5 or 6 drinks (2 points) How often did you have six o r more drinks on one occasion in the past year? Less than monthly (1 point) Points 4 Interpretation Positive Problems Problem Type SNOMED Code ICD Code Onset Dates Problem Status W/U Status Risk Notes Problem Hypertension (03744536) Hypertension (I10) Active confirmed Problem History of pneumonia (561919444) History of pneumonia (Z87.01) Active confirmed Problem History of hematuria (944852525) History of hematuria (Z87.448) Active confirmed Problem Dyspnea on exertion (93627377) BALLESTEROS (dyspnea on exertion) (R06.09) Active confirmed Problem Erectile dysfunction (disorder) (218079563) ED (erectile dysfunction) (N52.9) Active confirmed Problem Fatigue (44945481) Tiredness (R53.83) Active confirmed Vital Signs Temperature 98.6 degrees Fahrenheit 01/13/20 25 Blood pressure systolic 142 mm Hg 01/13/20 25 Blood pressure diastolic 80 mm Hg 025 Heart Rate 97 /min 01/12/2025 Respiratory Rate 16 /min 01/12/2025 Height 72 in 01/12/2025 Weight 218 lbs 01/12/2025 BMI 29.56 kg/m2 01/12/2025 Oximetry 97 % 01/12/2025 ple Encounters Encounter Location Date Provider Diagnosis [facility] [address] [place] [address] 01/12/2025 Sam Deng Hypertension I10 ; History of pneumonia Z87.01 ; History of hematuria Z87.448 ; BALLESTEROS (dyspnea on exertion) R06.09 ; ED (erectile dysfunction) N52.9 and Tiredness R53.83 Assessments Encounter Date Diagnosis (ICD Code) Assessment Notes Treatment Notes Treatment Clinical Notes Section Notes 01/12/2025 Hypertension (ICD-10 - I10) High Blood Pressure: Care Instructions material was published 01/12/2025 History of pneumonia (ICD-10 - Z87.01) 01/12/2025 History of hematuria (ICD-10 - Z87.448) 01/12/2025 BALLESTEROS (dyspnea on exertion) (ICD-10 - R06.09) 01/12/2025 ED (erectile dysfunction) (ICD-10 - N52.9) 01/12/2025 Tiredness (ICD-10 - R53.83) Plan Of Treatment Treatment Notes Assessment Notes Hypertension High Blood Pressure: Care Instructions material was published Next Appt Details Provider Name:Sam anderson, 03/09/2025 10:30:00 AM, [address], [place], [address], Progress Notes * HARMONY VEGA LDOB:1960 (64 yo M)Acc No.[id number]:01/12/2025 Progress Notes Patient: HARMONY BURNETTE Provider: Erasmo Deng M.D. :1960 A ge:64 Y S ex:Male Date:01/12/2025 Address:[address] , [place] [id number] Subjective: * Chief Complaints: * 1 . New Patient - c/o SOB, wheezing and fatigue x 3 month. * Medical History: M edical History Verified. * Surgical History: L eft Elbow 2007, Rt Elbow 2007, Right Shoulder 2014. * Hospitalization/Major Diagno stic Procedure: s ee above , Pneumonia 08/2024. * Family History: F ather: , diagnosed with Other malignant neoplasm of unspecified site. M other: , diagnosed with Unspecified essential hypertension, Unspecified heart disease. 2 sister(s) - healthy. 4 son(s) , 1 daughter(s) - healthy. . Family Hx - HTN. * Social History: T obacco Use: T obacco Control (Standard) T obacco use: N onsmoker. D rugs/Alcohol: D rugs H ave you used drugs other than those for medical reasons in the past 12 months??No. C affeine I ntake: n one. D o you smoke marijuana?: Denies. Do you drink alcohol?: Yes. D rug/Alcohol: A MACI-C (Standard) D id you have a drink containing alcohol in the past year? Y es, H ow often did you have a drink containing alcohol in the past year? M onthly or less (1 point), H ow many drinks did you have on a typical day when you were drinking in the past year? 5 or 6 drinks (2 points), H ow often did you have six or more drinks on one occasion in the past year? L ess than monthly (1 point), P oints 4 , I nterpretation P ositive. * Medications: N one * Allergies: N .K.D.A. Objective: * Vitals: T emp:98.6F, HR:97/min, BP:142/80mm Hg, Wt:218lbs, BMI:29.56Index, Ht:72in, RR:16/min, Oxygen sat %:97%, Peak Flow:RA, Ht-cm: 182.88 cm, Wt-k.88 kg. ple. Assessment: * Assessment: 1. H ypertension - I10 (Primary) 2 . H istory of pneumonia - Z87.01 ? 3 . H istory of hematuria - Z87.448 4 . D OE (dyspnea on exertion) - R06.09 5 . E D (erectile dysfunction) - N52.9 6 . T iredness - R53.83 Plan: * Treatment: * Preventive Medicine: Counseling: C are goal follow-up plan: A susanna Normal BMI Follow-up E xercise promotion: stretching, Feeding regime, Giving encouragement to exercise. * * Electronic signature of Marylou Deng MD on 03/07/2025 at 08:24 PM EDT Sign off status: Pending * Provider: Erasmo eDng M.D. Date: 0 01/12/2025 Generated for Essence chowdhury/Marie/Antonio on: 0 03/07/2025 08:24 PM EDT
--- OUTSIDE RECORDS SUMMARY | 2025-01-22 05:30 | XMS_ITS ---
Author Organization [facility] Address [address] [facility] [address] [place] [address] Care Team Providers Care Job Lithographer Name Role Phone Sam Deng Primary Care Provider Allergies No Known Allergies REASON FOR VISIT F/U HTN Social History Tobacco Use: Social History Observation Description Date Details (start date - stop date) Never Smoker NA - NA Tobacco Control (Standard) Question Answer Notes Tobacco use: Nonsmoker Vital Signs Temperature 98.0 degrees Fahrenheit 01/23/20 25 Blood pressure systolic 134 mm Hg 01/23/20 25 Blood pressure diastolic 84 mm Hg 025 Heart Rate 88 /min 01/22/2025 Respiratory Rate 16 /min 01/22/2025 Height 72 in 01/22/2025 Weight 213 lbs 01/22/2025 BMI 28.88 kg/m2 01/22/2025 Oximetry 92 % 01/22/2025 ple Encounters Encounter Location Date Provider Diagnosis [facility] [address] [place] [address] [address] [place] [address] 01/22/2025 Sam Deng Hypertension I10 ; BALLESTEROS (dyspnea on exertion) R06.09 ; ED (erectile dysfunction) N52.9 ; Tiredness R53.83 ; History of pneumonia Z87.01 and History of hematuria Z87.448 Assessments Encounter Date Diagnosis (ICD Code) Assessment Notes Treatment Notes Treatment Clinical Notes Section Notes 01/22/2025 Hypertension (ICD-10 - I10) High Blood Pressure: Care Instructions material was published 01/22/2025 BALLESTEROS (dyspnea on exertion) (ICD-10 - R06.09) 01/22/2025 ED (erectile dysfunction) (ICD-10 - N52.9) 01/22/2025 Tiredness (ICD-10 - R53.83) 01/22/2025 History of pneumonia (ICD-10 - Z87.01) 01/22/2025 History of hematuria (ICD-10 - Z87.448) Plan Of Treatment Treatment Notes Assessment Notes Hypertension High Blood Pressure: Care Instructions material was published Next Appt Details Provider Name:Sam anderson, 03/09/2025 10:30:00 AM, [address] [facility] [address], [place], [address], Progress Notes * HARMONY VEGA LDOB:1960 (64 yo M)Acc No.[id number]:01/22/2025 Progress Notes Patient: HARMONY BURNETTE Provider: Erasmo Deng M.D. :1960 A ge:64 Y S ex:Male Date:01/22/2025 Address:[facility] [address] [place] [address] Subjective: * Chief Complaints: * 1 . F/U HTN. * Medical History: M edical History Verified. [...] marijuana?: Denies. Do you drink alcohol?: Yes. * Medications: N one * Allergies: N .K.D.A. Objective: * Vitals: T emp:98.0F, HR:88/min, BP:134/84mm Hg, Wt:213lbs, BMI:28.88Index, Ht: 72 in, RR:16/min, Oxygen sat %:92%, Ht-cm: 182.88 cm, Wt-k.62 kg. ple. Assessment: * Assessment: 1. H ypertension - I10 (Primary) 2 . D OE (dyspnea on exertion) - R06.09? 3. E D (erectile dysfunction) - N52.9 4 . T iredness - R53.83? 5. H istory of pneumonia - Z87.01 6 . H istory of hematuria - Z87.448 Plan: * Treatment: * Preventive Medicine: Counseling: C are goal follow-up plan: A susanna Normal BMI Follow-up E xercise promotion: stretching, Feeding regime, Giving encouragement to exercise. * * Electronic signature of Marylou Deng MD on 03/07/2025 at 08:24 PM EDT Sign off status: Pending * Provider: Erasmo Deng M.D. Date: 0 01/22/2025 Generated for Essence chowdhury/Marie/Antonio on: 0 03/07/2025 08:24 PM EDT
--- OUTSIDE RECORDS SUMMARY | 2025-02-11 08:45 | XMS_ITS ---
Author Organization [facility] Address [address] [facility] [address] [place] [address] Care Team Providers Care Dentofacial Orthopedics Dentist Name Role Phone Sam Deng Primary Care Provider Encounters Encounter Location Date Provider Diagnosis [facility] [address] [facility] [address] [place] [address] 02/11/2025 Sam Deng Plan Of Treatment Next Appt Details Provider Name:Sam anderson, 03/09/2025 10:30:00 AM, [address] [facility] [address], [place], [address], Progress Notes * HARMONY VEGA LDOB:1960 (64 yo M)Acc No.[id number]:02/11/2025 Progress Note Patient: HARMONY BURNETTE Carey Provider: Erasmo Deng M.D. :1960 A ge:64 Y S ex:Male Date:02/11/2025 Address:[address] , [facility] Subjective: * Chief Complaints: * * Medical History: Objective: * Vitals: Assessment: Plan: * Treatment: * * Electronic signature of Marylou Deng MD on 03/07/2025 at 08:24 PM EDT Sign off status: Pending * Provider: Erasmo Deng M.D. Date: 0 02/11/2025 Generated for Essence chowdhury/Marie/Antonio on: 0 03/07/2025 08:24 PM EDT
--- NOTE | ~2025-03-07 | CT_ITS ---
EXAMINATION: CT abdomen pelvis wo teri, 03/07/2025 21:53 CDT HISTORY: r flank pain COMPARISON: No comparisons available. TECHNIQUE: CT scan of the abdomen and pelvis was performed without IV contrast. One or more of the following dose reduction techniques were used: automated exposure control, adjustment of the mA and/or kV according to patient size, use of iterative reconstruction technique. Unless otherwise stated, incidental findings do not require dedicated follow up imaging FINDINGS: CT abdomen: LUNG BASES: Moderate cardiomegaly. The lung bases demonstrate chronic changes with basilar areas of atelectasis. Elevation of the left hemidiaphragm. LIVER: Moderate hepatic steatosis. SPLEEN: Unremarkable, no splenomegaly. KIDNEYS: Right Kidney: Unremarkable. No calculi. No hydronephrosis. Left Kidney: Unremarkable. No calculi. No hydronephrosis ADRENAL GLANDS: Unremarkable. PANCREAS: Unremarkable. GALLBLADDER/BILIARY: Gallbladder contracted. STOMACH AND ESOPHAGUS: The stomach is decompressed. BOWEL/MESENTERY: Moderate fecal content. Moderate diverticulosis. No colitis or diverticulitis. Appendix normal. Mesentery normal. No dilated small bowel loops. ADENOPATHY/RETROPERITONEUM: No lymphadenopathy. AORTA/VASCULATURE: Normal caliber aorta. FREE FLUID OR FREE AIR: No free fluid.. CT pelvis: SOLID ORGANS/REPRODUCTIVE: Unremarkable. BLADDER: Within normal limits. OSSEOUS STRUCTURES: No acute osseous abnormality.No suspicious lesions. OVERLYING SOFT TISSUES: Unremarkable. IMPRESSION: No acute intra-abdominal process. Incidental findings above Reviewed, dictated and finalized at location A.
--- NOTE | ~2025-03-07 | XR_ITS ---
EXAM/ PROCEDURE: XR shoulder RT min 2V - 03/07/2025 20:12 CDT HISTORY: 64 years old Male with pain COMPARISON: None available TECHNIQUE: Two view(s) FINDINGS/ IMPRESSION: There are no fractures or dislocations.Joint space narrowing, subchondral sclerosis, subchondral cyst formation and osteophyte formation, compatible with mild osteoarthritis. Reviewed, dictated and finalized at location N.
[2025-03-07 17:51] VITALS: BP 135/72; PULSE 99; RESP 18; TEMP 36.7; O2SAT 95
--- OUTSIDE RECORDS SUMMARY | 2025-03-07 19:24 | XMS_ITS | Patient Health Record ---
Author Organization [facility] Address [address] [address] Care Team Providers Care Vacuum Kettle Cook Name Role Phone Sam Deng Primary Care Provider Allergies No Known Allergies Reason For Referral No Information Medications Medication SIG (Take, Route, Frequency, Duration) Notes Start Date End Date Status Atorvastatin Calcium 10 MG 1 tablet Oral ly Once a day; Duration: 30 days 02/16/2025 Active Social History Tobacco Use: Social History Observation [...] Status W/U Status Risk Notes Problem Hypertension (19392430) Hypertension (I10) Active confirmed Problem Hyperlipidemia (28316439) Hyperlipidemia (E78.5) Active confirmed Problem Erectile dysfunction (disorder) (805078950) ED (erectile dysfunction) (N52.9) Active confirmed Problem Dyspnea on exertion (46479237) BALLESTEROS (dyspnea on exertion) (R06.09) Active confirmed Problem Fatigue (46541500) Tiredness (R53.83) Active confirmed Problem History of pneumonia (505870834) History of pneumonia (Z87.01) Active confirmed Problem History of hematuria (232734495) History of hematuria (Z87.448) Active confirmed Vital Signs Heart Rate 94 /min 02/16/2025 tm/ple Temperature 99.0 degrees Fahrenheit 02/16/2025 tm/p le Respiratory Rate 16 /min 02/16/2025 tm/ple Oximetry 97 % 02/16/2025 tm/ple Blood pressure diastolic 82 mm Hg 02/16/2025 tm/ ple Height 72 in 02/16/2025 tm/ple Blood pressure systolic 138 mm Hg 02/16/2025 tm/p le Weight 215 lbs 02/16/2025 tm/ple BMI 29.16 kg/m2 02/16/2025 tm/ple Encounters Encounter Location Date Provider Diagnosis [address] [address] 01/12/2025 Sam Deng Hypertension I10 ; History of pneumonia Z87.01 ; History of hematuria Z87.448 ; BALLESTEROS (dyspnea on exertion) R06.09 ; ED (erectile dysfunction) N52.9 and Tiredness R53.83 [place] [address] [address] [address] 01/22/2025 Sam Deng Hypertension I10 ; D OE (dyspnea on exertion) R06.09 ; ED (erectile dysfunction) N52.9 ; Tiredness R53.83 ; History of pneumonia Z87.01 and History of hematuria Z87.448 [facility] [address] [address] 02/16/2025 Sam Deng Cough R05.9 ; Chest congestion R09.89 ; Hypertension I10 ; ED (erectile dysfunction) N52.9 ; BALLESTEROS (dyspnea on exertion) R06.09 and Hyperlipidemia E78.5 Assessments Encounter Date Diagnosis (ICD Code) Assessment Notes Treatment Notes Treatment Clinical Notes Section Notes 01/12/2025 Hypertension (ICD-10 - I10) High Blood Pressure: Care Instructions material was published 01/12/2025 History of pneumonia (ICD-10 - Z87.01) 01/22/2025 Hypertension (ICD-10 - I10) High Blood Pressure: Care Instructions material was published 02/16/2025 Chest congestion (ICD-10 - R09.89) 02/16/2025 Cough (ICD-10 - R05.9) Cough: Care Instructions material was published 01/12/2025 History of hematuria (ICD-10 - Z87.448) 01/22/2025 BALLESTEROS (dyspnea on exertion) (ICD-10 - R06.09) 02/16/2025 Hypertension (ICD-10 - I10) 02/16/2025 ED (erectile dysfunction) (ICD-10 - N52.9) 01/22/2025 ED (erectile dysfunction) (ICD-10 - N52.9) 01/12/2025 BALLESTEROS (dyspnea on exertion) (ICD-10 - R06.09) 01/12/2025 ED (erectile dysfunction) (ICD-10 - N52.9) 02/16/2025 BALLESTEROS (dyspnea on exertion) (ICD-10 - R06.09) 01/22/2025 Tiredness (ICD-10 - R53.83) 01/22/2025 History of pneumonia (ICD-10 - Z87.01) 02/16/2025 Hyperlipidemia (ICD-10 - E78.5) 01/12/2025 Tiredness (ICD-10 - R53.83) 01/22/2025 History of hematuria (ICD-10 - Z87.448) Plan Of Treatment Next Appt Details Provider Name:Sam anderson, 03/09/2025 10:30:00 AM, [address] [facility] [facility] [address], [place], [address], Insurance Providers Payer Name Payer Address Payer Phone Subscriber Number Group Number Insured Name Patient Relationship to Insured Coverage Start Date Coverage End Date MEDICARE PART AB [address] [place] [phone] [id number] HARMONY VEGA Self - patient is the insured 4 Medical (General) History Surgical History Surgery Date(Month/Year) Left Elbow 2007 Rt Elbow 2008 Right Shoulder 2014 Hospitalization History Reason Date(Month/Year) Pneumonia 08/2024 see above
--- OUTSIDE RECORDS SUMMARY | 2025-03-07 19:25 | XMS_ITS | Clinical Summary ---
Author Organization [facility] Address [address] [place] [id number] Care Team Providers Care Industrial Radiographer Name Role Phone Sam Deng MD Primary Care Provider Encounters Date Type Department Care Team Description 02/10/2025 9:55 AM CDT Lab [facility] Lab [address] [place] [id number] 01/15/2025 9:25 AM CDT - 01/15/2025 11:59 PM CDT Hospital Encounter [facility] Diagnostic Imaging [address] [place] [address] History of pneumonia Discharge Disposition: Discharge to home or self care 01/15/2025 9:10 AM CDT Lab [facility] Lab [address] [place] [phone] from Last 3 Months Social History Tobacco Use Types Packs/Day Years Used Date Smoking Tobacco: Never Assessed Sex and Gender Information Value Date Recorded Sex Assigned at Not on file Legal Sex Male 9:05 AM CDT Gender Identity Not on file Sexual Orientation Not on file Plan of Treatment Health Maintenance Due Date Last Done Comments Colon Cancer Screening-Colonoscopy 1959 Depression Screening 1959 Fall Risk Assessment 1959 Hepatitis C Screening 1959 DTaP/Tdap/Td Vaccine (1 - Tdap) 1970 Hepatitis B Screening 1977 Pneumococcal vaccine 65+ (1 of 1 - PCV) 2009 Zoster Vaccine (1 of 2) 2009 Abdominal Aortic Aneurysm (AAA) Screen 2024 Well Visit 65+ 2024 Influenza Vaccine (#1) 2025 Prostate Cancer Screening-PSA 02/10/2027 02/10/2025 Procedures Procedure Name Priority Date/Time Associated Diagnosis Comments EGFR Routine 02/10/2025 10:15 AM CDT TSH Routine 02/10/2025 10:15 AM CDT T4, FREE Routine 02/10/2025 10:15 AM CDT PSA SCREEN Routine 02/10/2025 10:15 AM CDT LIPID PANEL Routine 02/10/2025 10:15 AM CDT COMPREHENSIVE METABOLIC PANEL Routine 02/10/2025 10:15 AM CDT XR CHEST PA LATERAL 2 VIEWS Schedule Routine, Read Routine (OP Routine) 01/15/2025 10:02 AM CDT History of pneumonia DIFFERENTIAL AUTO Routine 01/15/2025 9:3 7 AM CDT T3, FREE Routine 01/15/2025 9:37 AM CDT ERYTHROCYTE SEDIMENTATION RATE Routine 01/15/2025 9:37 AM CDT CBC WITH AUTO DIFFERENTIAL Routine 01/15/2025 9:37 AM CDT HEMOGLOBIN A1C Routine 01/15/2025 9:37 AM CDT URINALYSIS, MACROSCOPIC Routine 01/15/2025 9:37 AM CDT from Last 3 Months Results * eGFR (02/10/2025 10:15 AM CDT) eGFR >90 >=60 mL/min/1. 73 m2 Comment: Interpretive Data Reference Interval Normal >/= 90 mL/min/1.73m2 Mildly decreased* 60 - 89 mL/min/1.73m2 Mildly to moderately decreased 45 - 59 mL/min/1.73m2 Moderately to severely decreased 30 - 44 mL/min/1.73m2 Severely decreased 15 - 29 mL/min/1.73m2 Kidney Failure < 15 mL/min/1.73m2 *Relative to young adult level Estimated glomerular filtration rate is determined by the 2020 CKD-EPI equation recommended by the National Kidney Foundation (A Unifying Approach to GFR Estimation: Recommendations of the NKF-ASK Task Force on Reassessing the Inclusion of Race in Diagnosing Kidney Disease, JASN 2020). The CKD-EPI equation should not be used for patients with unstable renal function and has not been validated in children and those over 70. Current interpretive data was last reviewed 2021. Testing performed by: [address] [address] Blood 02/10/2025 10:1 5 AM CDT 02/10/2025 11:09 AM CDT Sam Deng MD LAB BLOOD ORDERABLES Final Result SAUNDRA [facility] [place] [address] * PSA screen (02/10/2025 10:15 AM CDT) PSA-Total 0.74 <=5.40 ng/mL Comment: Interpretive Data AGE SEX REFERENCE INTERVAL 0 minutes-150 years Female None 0 minutes-49 years Male None 50-59 years Male 0-3.90 60-69 years Male 0-5.40 70-79 years Male 0-6.20 80-150 years Male 0-6.20 The Kalyan PSA Total assay procedure was used. Results from different manufacturers or methods may not be comparable. Serial testing should be performed using the same method. Current interpretive data last revised 21. Testing performed by: [address] [address] Blood 02/10/2025 10:1 5 AM CDT 02/10/2025 11:09 AM CDT Sam Deng MD LAB BLOOD ORDERABLES Final Result Performing Organization Address [facility] de Phone Number ANIB[address] [address] * TSH (02/10/2025 10:15 AM CDT) Thyroid Stimulating Hormone 1.52 0.30 - 4.20 mcIUnit/mL Comment:Testing performed by : [address] [address] Blood 02/10/2025 10:1 5 AM CDT 02/10/2025 11:09 AM CDT Sam Deng MD LAB BLOOD ORDERABLES Final Result Performing Organization Address [facility] de Phone Number [address] [address] * T4, free (02/10/2025 10:15 AM CDT) Pathologist [facility] Free T4 1.07 0.90 - 1.70 ng/dL Comment:Testing performed by : [address] [address] Blood 02/10/2025 10:1 5 AM CDT 02/10/2025 11:09 AM CDT Sam Deng MD LAB BLOOD ORDERABLES Final Result Performing Organization Address [facility] Co de Phone Number [address] [place] [place] [address] * (ABNORMAL) Lipid panel (02/10/2025 10:15 AM CDT) Cholesterol 261(H) 30 - 199 mg/dL Comment: Interpretive Data Ages < or = 19 years Acceptable: <170 mg/dL Borderline high: 170-199 mg/dL High: >or= 200 mg/dL Ages > or = 20 years Desirable: <200 mg/dL Borderline high: 200-239 mg/dL High: >or= 240 mg/dL Literature References: 1. Expert Panel on Integrated Guidelines for Cardiovascular Health and Risk Reduction in Children and Adolescents. Pediatrics 2011;128:S213 2. NCEP Expert Panel. Circulation 2004;110:227 Current Interpretive Data was last revised on 2018. Testing performed by: [address] [address] Triglycerides 214(H) <=149 mg/dL SAUNDRA Comment: Interpretive Data Ages < or = 9 years Acceptable: <75 mg/dL Borderline high: 75-99 mg/dL High: >or= 100 mg/dL Ages 10 to 20 years Acceptable: <90 mg/dL Borderline high: 90-129 mg/dL High: >or= 130 mg/dL Ages > or = 20 years Desirable: <150 mg/dL Borderline high: 150-199 mg/dL High: 200-499 mg/dL Very high: >or= 499 mg/dL Literature References: 1. Expert Panel on Integrated Guidelines for Cardiovascular Health and Risk Reduction in Children and Adolescents. Pediatrics 2011;128:S213 2. NCEP Expert Panel. Circulation 2004;110:227 Current Interpretive Data was last revised on 2018. Testing performed by: [address] [address] HDL 34(L) >=40 mg/dL SAUNDRA Comment: Interpretive Data Ages < or = 19 years Acceptable: >45 mg/dL Borderline low: 40-45 mg/dL Low: <40 mg/dL Ages > or = 20 years Desirable: >or= 60 mg/dL Low: <40 mg/dL Literature References: 1. Expert Panel on Integrated Guidelines for Cardiovascular Health and Risk Reduction in Children and Adolescents. Pediatrics 2011;128:S213 2. NCEP Expert Panel. Circulation 2004;110:227 Current Interpretive Data was last revised on 2018. Testing performed by: [address] [address] LDL, calculated 186(H) <=129 mg/dL SAUNDRA Comment: Interpretive Data Ages < or = 19 years Acceptable: <110 mg/dL Borderline high: 110-129 mg/dL High: >or= 130 mg/dL Ages > or = 20 years Optimal: <100 mg/dL Near optimal: 100-129 mg/dL Borderline high: 130-159 mg/dL High: >160 mg/dL Calculated using the Siddhartha LDL-C estimating equation. This equation was implemented on 2024. Prior to this date LDL-C was estimated using the Friedewald equation. Literature References: 1. Expert Panel on Integrated Guidelines for Cardiovascular Health and Risk Reduction in Children and Adolescents. Pediatrics 2011;128:S213 2. NCEP Expert Panel. Circulation 2004;110:227 3. Siddhartha Aguayo et al. BLOSSOM Cardiol. 2020 October 22;5(5):540-548. doi: 10.1001/jamacardio.2020.0013 Current Interpretive Data was last revised on 2024. Testing performed by: [address] [address] Non-HDL Cholesterol 227 mg/dL SAUNDRA CHAN Comment: Interpretive Data Ages < or = 19 years Acceptable: <120 mg/dL Borderline high: 120-144 mg/dL High: >145 mg/dL Ages > or = 20 years When triglycerides are >200 mg/dL, Non-HDL cholesterol is a secondary target of therapy with treatment goals that are 30 mg/dL greater than the LDL cholesterol target. Literature References: 1. Expert Panel on Integrated Guidelines for Cardiovascular Health and Risk Reduction in Children and Adolescents. Pediatrics 2011;128:S213 2. NCEP Expert Panel. Circulation 2004;110:227 Current Interpretive Data was last revised on 2018. Testing performed by: [address] [address] Chol/HDL ratio 8 SAUNDRA Comment:Testing performed by : [address] [address] Blood 02/10/2025 10:1 5 AM CDT 02/10/2025 11:09 AM CDT us Sam Deng MD LAB BLOOD ORDERABLES Final Result SAUNDRA CHAN [address] [facility] Department [place] [address] * Comprehensive metabolic panel (02/10/2025 10:15 AM CDT) Sodium 139 135 - 145 mmol/L Comment:Testing performed by : [address], [place]., [address] Potassium, pl 4.1 3.3 - 4.9 mmol/L SAUNDRA Comment:Testing performed by : [address], [place]., [address] Chloride 104 97 - 110 mmol/L SAUNDRA Comment:Testing performed by : [address], [place]., [address] CO2 23 22 - 32 mmol/L SAUNDRA Comment:Testing performed by : [address], [place]., [address] Anion gap 12 2 - 15 mmol/L SAUNDRA Comment:Testing performed by : [address], [place]., [address] BUN 11 6 - 25 mg/dL SAUNDRA Comment:Testing performed by : [address], [place]., [address] Creatinine 0.92 0.80 - 1.30 mg/dL SAUNDRA Comment:Testing performed by : [address], [place]., [address] Glucose 83 70 - 199 mg/dL SAUNDRA Comment: Interpretive Data Fasting glucose >/= 126 mg/dl is diagnostic for diabetes. Fasting is defined as no caloric intake for at least 8 hours. Fasting glucose between 100 mg/dl to 125 mg/dl is diagnostic of prediabetes. In a patient with classic symptoms of hyperglycemia or hyperglycemic crisis, a random glucose >/= 200 mg/dl is diagnostic for diabetes. In the absence of unequivocal hyperglycemia, results should be confirmed by repeat testing. The classification and Diagnosis of Diabetes Diabetes Care 202; 46: S19-S40. Current interpretive data was last revised 2022. Testing performed by: [address] [address] Calcium 9.7 8.5 - 10.3 mg/dL SAUNDRA Comment:Testing performed by : [address], [place]., [address] Bilirubin, total 0.8 0.1 - 1.2 mg/dL SAUNDRA Comment:Testing performed by : [address] [address] Protein, pl 7.9 6.5 - 8.5 g/dL SAUNDRA CHAN Comment:Testing performed by : [address] [address] Albumin 3.9 3.5 - 5.0 g/dL SAUNDRA CHAN Comment:Testing performed by : [address] [address] Alk phos 76 40 - 130 Units/L SAUNDRA Comment:Testing performed by : [address] [address] ALT 15 7 - 55 Units/L SAUNDRA Comment:Testing performed by : [address] [address] AST 21 10 - 50 Units/L SAUNDRA Comment:Testing performed by : [address] [address] Blood 02/10/2025 10:1 5 AM CDT 02/10/2025 11:09 AM CDT us Sam Deng MD LAB BLOOD ORDERABLES Final Result [facility]DRA [address] [facility] Department [place] [address] * XR Chest PA Lateral 2 Views (01/15/2025 10:02 AM CDT) Anatomical Region Laterality Modality Body, Chest N/A Computed Radiogr aphy 01/21/2025 6:12 AM CDT Narrative 01/21/2025 6:12 AM CDT EXAM DESCRIPTION: XR CHEST PA LATERAL 2 VIEWS REASON FOR STUDY: Z87.01 Intermittent SOB and wheezing for the past few months TECHNIQUE: 2 radiographic view(s) of the chest. COMPARISON: None FINDINGS: LUNGS: No focal opacity, pleural effusion, or pneumothorax. HEART/MEDIASTINUM: Cardiac silhouette normal in size. Mediastinal and hilar contours appear normal. LINES/TUBES: None. BONES: No acute osseous abnormality. Calcified athero scleroses of the aortic arch. IMPRESSION: No acute cardiopulmonary abnormality. THIS IS AN ELECTRONICALLY VERIFIED FINAL REPORT 01/21/2025 6:12 AM - Electronically signed by Rusty Maravilla M.D. BB: TRISTON Report ID: [id number] Reading Location: [id number] Procedure Note Rusty Maravilla MD PhD - 01/21/2025 EXAM DESCRIPTION: XR CHEST PA LATERAL 2 VIEWS REASON FOR STUDY: Z87.01 Intermittent SOB and wheezing for the past few months TECHNIQUE: 2 radiographic view(s) of the chest. COMPARISON: None FINDINGS: LUNGS: No focal opacity, pleural effusion, or pneumothorax. HEART/MEDIASTINUM: Cardiac silhouette normal in size. Mediastinal andhilar contours appear normal. LINES/TUBES: None. BONES: No acute osseous abnormality. Calcified athero scleroses of the aortic arch. IMPRESSION: No acute cardiopulmonary abnormality. THIS IS AN ELECTRONICALLY VERIFIED FINAL REPORT 01/21/2025 6:12 AM - Electronically signed by Rusty Maravilla M.D. BB: TRISTON Report ID: [id number] Reading Location: [id number] us Sam Deng MD IMG XR PROCEDURES Final Res ult * Differential, auto (01/15/2025 9:37 AM CDT) Neutrophil abs 1.66 1.50 - 6.50 K/cumm Comment:Testing performed by : [address] [address] Imm gran abs 0.01 0.00 - 0.10 K/cumm SAUNDRA Comment:Testing performed by : [address] [address] Lymphocyte abs 2.31 0.80 - 3.30 K/cumm SAUNDRA Comment:Testing performed by : [address] [address] Monocyte abs 0.55 0.20 - 0.80 K/cumm [facility] Comment:Testing performed by : [address] [address] Eosinophil abs 0.09 0.00 - 0.50 K/cumm [facility] Comment:Testing performed by : [address], [place]., [address] Basophil abs 0.02 0.00 - 0.10 K/cumm [facility] Comment:Testing performed by : [address] [address] Neutrophil pct 35.8 % [facility] Comment: Interpretive Data Percent cell count reference ranges are not reported, since discordance with absolute values may lead to misinterpretation of CBC data. Current Interpretive Data was last revised on 2017. Testing performed by: [address] [address] Imm gran pct 0.2 % [facility] Comment: Interpretive Data Percent cell count reference ranges are not reported, since discordance with absolute values may lead to misinterpretation of CBC data. Current Interpretive Data was last revised on 2017. Testing performed by: [address] [address] Lymphocyte pct 49.8 % [facility] Comment: Interpretive Data Percent cell count reference ranges are not reported, since discordance with absolute values may lead to misinterpretation of CBC data. Current Interpretive Data was last revised on 2017. Testing performed by: [address] [address] Monocyte pct 11.9 % [facility] Comment: Interpretive Data Percent cell count reference ranges are not reported, since discordance with absolute values may lead to misinterpretation of CBC data. Current Interpretive Data was last revised on 2017. Testing performed by: [address] [address] Eosinophil pct 1.9 % [facility] Comment: Interpretive Data Percent cell count reference ranges are not reported, since discordance with absolute values may lead to misinterpretation of CBC data. Current Interpretive Data was last revised on 2017. Testing performed by: [address] [address] Basophil pct 0.4 % SAUNDRA CHAN Comment: Interpretive Data Percent cell count reference ranges are not reported, since discordance with absolute values may lead to misinterpretation of CBC data. Current Interpretive Data was last revised on 2017. Testing performed by: [address] [address] Blood 01/15/2025 9:37 AM CDT 01/15/2025 10:12 AM CDT us Sam Deng MD LAB BLOOD ORDERABLES Final Result SA[facility]DRA [address] [facility] Department [place] [address] * (ABNORMAL) Urinalysis, macroscopic Urine (01/15/2025 9:37 AM CDT) Color, ur Yellow Yellow Comment:Testing performed by : [address] [address] Clarity, ur Clear Clear SAUNDRA Comment:Testing performed by : [address] [address] Specific gravity, ur 1.023 1.003 - 1.030 SAUNDRA Comment:Testing performed by : [address] [address] pH, urine 6.5 SAUNDRA Comment: Interpretive Data U rine pH is affected by diet, medications, systemic acid-base disturbances, and renal tubular function. pH may affect urinary stone formation. For example, urine pH below 6.0 may help reduce the tendency for calcium phosphate stones and pH greater than 6.0 may reduce the tendency for uric acid stone formation. Source: [facility] [employer] Current Interpretive Data was last revised on 2017 Testing performed by: [address] [address] Protein, ur ql Negative Negative SAUNDRA Comment:Testing performed by : [address] [address] Glucose, ur ql Negative Negative SAUNDRA Comment:Testing performed by : [address] [place] [address] Ketones, ur Negative Negative SAUNDRA CHAN Comment:Testing performed by : [address] [address] Bilirubin, ur Negative Negative SAUNDRA CHAN Comment:Testing performed by : [address], [place]., [address] Blood, ur Negative Negative SAUNDRA CHAN Comment:Testing performed by : [address], [place]., [address] Urobilinogen, ur 2.0(A) <2.0 mg/dL SAUNDRA CHAN Comment:Testing performed by : [address], [place]., [address] Nitrite, ur Negative Negative SAUNDRA CHAN Comment:Testing performed by : [address], [place]., [address] Leukocyte esterase, ur Negative Negative SAUNDRA CHAN Comment:Testing performed by : [address], [place]., [address] Urine 01/15/2025 9:37 AM CDT 01/15/2025 11:06 AM CDT us Sam Deng MD LAB MICROBIOLOGY - GENERAL ORDERABLES Final Result SAUNDRA [facility] Department of Laboratories [place], [place] [id number] * CBC with auto differential (01/15/2025 9:37 AM CDT) WBC 4.64 3.80 - 9.90 K/cumm Comment:Testing performed by : [address] [address] Hgb 14.1 13.0 - 17.5 g/dL SAUNDRA CHAN Comment:Testing performed by : [address] [address] Hct 41.8 38.9 - 50.3 % SAUNDRA CHAN Comment:Testing performed by : [address] [address] Plt 275 150 - 400 K/cumm SAUNDRA CHAN Comment:Testing performed by : [address] [address] MPV 10.6 9.1 - 12.3 fL SAUNDRA CHAN Comment:Testing performed by : [address] [address] RBC 4.61 4.30 - 5.80 M/cumm SAUNDRA CHAN Comment:Testing performed by : [address] [address] MCV 90.7 81.3 - 96.4 fL SAUNDRA Comment:Testing performed by : [address] [address] MCH 30.6 27.1 - 33.3 pg SAUNDRA CHAN Comment:Testing performed by : [address] [address] MCHC 33.7 32.3 - 35.7 g/dL SAUNDRA Comment:Testing performed by : [address], [address] RDW CV 12.2 11.1 - 14.9 % SAUNDRA Comment:Testing performed by : [address] [address] RDW SD 39.8 35.7 - 48.1 fL SAUNDRA Comment:Testing performed by : [address] [address] NRBC abs 0.00 0.00 - 0.01 K/cumm SAUNDRA Comment:Testing performed by : [address] [address] Blood 01/15/2025 9:37 AM CDT 01/15/2025 10:12 AM CDT us Sam Deng MD LAB BLOOD ORDERABLES Final Result SAUNDRA [address] [facility] Department of Laboratories [place], [place] [id number] * (ABNORMAL) Erythrocyte sedimentation rate (01/15/2025 9:37 AM CDT) Pathologist [facility] Erythrocyte sedimentation rate 49(H) 1 - 20 mm/hr Comment:Testing performed by : [address] [address] Blood 01/15/2025 9:37 AM CDT 01/15/2025 10:12 AM CDT Result Marvin Deng MD LAB BLOOD ORDERABLES Final Result Performing Organization Address [facility] de Phone Number [address] [address] * T3, free (01/15/2025 9:37 AM CDT) Free T3 3.6 2.0 - 4.4 pg/mL Blood 01/15/2025 9:37 AM CDT 01/15/2025 12:45 PM CDT us Sam Deng MD LAB BLOOD ORDERABLES Final Result Performing Organization Address [facility] Phone Number [address] [address] * Hemoglobin A1c (01/15/2025 9:37 AM CDT) [facility] Hgb A1C 5.3 4.0 - 5.6 % Comment:Testing performed by : [address] [address] Estimated Average Glucose 105 mg/dL [facility] Comment: The ADA recommends reporting an estimated Average Glucose (eAG) with all Hemoglobin A1c results using the equation derived from a study of 507 normal and diabetic adults. Minority populations were underrepresented and children were not included. (Diabetes Care 31:4267-9041, 2008). The eAG is not equivalent to a fasting glucose. Testing performed by: [address] [address] Blood 01/15/2025 9:37 AM CDT 01/15/2025 10:12 AM CDT Result Marvin Deng MD LAB BLOOD ORDERABLES Final Result SAUNDRA [id number] [facility] [place] [address] from Last 3 Months Insurance MEDICARE Care Teams Industrial Radiographer Relationship Specialty Start Date End Date Sam Deng MD [address] [place] [address] PCP - General Internal Medicine 01/15/25
--- NOTE | 2025-03-07 19:48 | ED_ITS ---
HPI - Extremity Problem General Chief complaint: Extremity Problem,Nontraumatic Stated complaint: R shoulder pain no recent injury Time Seen by Provider: 03/07/25 19:06 History of Present Illness HPI Narrative: Patient is a 64-year-old male who presents emergency department this evening complaining of sudden-onset right upper quadrant/flank pain. Patient also complains of right shoulder pain as well. Denies any falls or trauma. States that the pain started out of nowhere. Patient does appear uncomfortable during my examination. Denies any history of kidney stones. Denies any urinary symptoms including dysuria or hematuria. There were no additional modifying, alleviating, or precipitating factors at this time. Related Data Allergies Allergy/AdvReac Type Severity Reaction Status Date / Time No Known Allergies Allergy Verified 03/07/25 18:20 Review of Systems 2 Review of Systems: All systems are reviewed and are negative unless stated otherwise in the HPI. [facility] Social History Social History Smoking status: Never smoker Alcohol intake: current Drinks per week: 1 Substance use: never Substance use type: does not use Do You Feel Safe in your Home?: Yes Lack of Transportation: No Lack of Food: Never True Current Housing: I Have Housing Concerned About Future Housing: No Difficulty Paying Gas/Electric Bills: No Difficulty Paying for Meds: No Currently Unemployed: No Education: Decline to Answer Difficulty w/ Childcare or Family Care: No Spiritual care concerns: No Exam 2 Narrative: General: Alert, awake, afebrile, in moderate distress secondary to pain. HEENT: PERRL, no rhinorrhea, no post nasal drip, oropharynx clear. Neck: Trachea midline, no JVD, no lymphadenopathy. Cardiovascular: Regular rate and rhythm, no murmurs, rubs or gallops, no peripheral edema. Respiratory: Clear to auscultation bilaterally, no tachypnea, no wheezing, no rhonchi, no rubs, no respiratory distress. Abdomen: Soft, nontender, nondistended, no rebound, no guarding, no peritoneal signs. Musculoskeletal: No joint swelling or deformity, normal muscle tone, intact full range of motion at the right shoulder joint. Skin: No rashes or petechia, no signs of infection. Psychiatric: Alert and oriented, normal behavior and judgment for situation. Neurological: Alert and oriented to person, place, and time. Follows all commands. No focal deficits, speech is clear and fluent. Course Vital Signs Vital signs: Vital Signs Temperature 98.1 F 03/07/25 17:51 Pulse Rate 99 03/07/25 17:51 Respiratory Rate 18 03/07/25 17:51 Blood Pressure 135/72 03/07/25 17:51 Pulse Oximetry 95 03/07/25 17:51 Oxygen Delivery Room Air 03/07/25 17:51 Temperature 98.1 F 03/07/25 17:51 Pulse Rate 99 03/07/25 17:51 Respiratory Rate 18 03/07/25 17:51 Blood Pressure 135/72 03/07/25 17:51 Pulse Oximetry 95 03/07/25 17:51 Oxygen Delivery Room Air 03/07/25 17:51 MDM - Extremity (Nontraumatic) MDM Narrative Medical decision making narrative: The patient was evaluated by myself in the emergency department. History is obtained from patient who is an independent historian and physical exam was performed. External medical records were reviewed at this time. IV was established and pertinent tests were ordered. Patient was administered 15 mg of IV Toradol for pain. Laboratory results obtained revealing mild elevation in the bilirubin of 1.5 no acute process. Urinalysis revealed trace ketones otherwise unremarkable. Imaging studies obtained included CT abdomen pelvis with IV contrast which was independently interpreted by me revealing no acute process although image quality is somewhat degraded secondary to artifact from motion, which is pending final radiology interpretation. Patient was informed that his symptoms could be due to biliary colic/gallbladder disease and recommended an outpatient ultrasound for his gallbladder. Differential diagnosis considerations include kidney stones/renal colic, biliary colic, musculoskeletal strain. Comorbidities impacting this visit include none. I have evaluated and discussed social determinants of health with the patient that could potentially impact subsequent diagnosis and treatment plans. On repeat assessment of the patient, reevaluation revealed that the patient is doing well and is in no acute distress. Patient symptoms have improved since he arrived to our emergency department. Patient was found resting comfortably asleep on reassessment. Repeat vital signs were all reviewed and noted to be stable. Differential diagnosis and treatment plan were discussed with the patient at bedside. Patient agrees with discussion and after shared medical decision making agrees with discharge. All questions were answered to the patient's satisfaction. Patient will follow up with GI in 3-5 days. Patient was provided with strict return precautions and instructed to return to the emergency department if any new or worsening symptoms develop. The patient was discharged in stable condition. Lab Data 03/07/25 20:24 03/07/25 20:24 Labs: Lab Results 03/07/25 03/07/25 03/07/25 Range/Units 20:24 20:24 22:39 WBC 10.0 (4.5-10.0) K/mm3 RBC 4.54 L (4.6-6.20) M/mm3 Hgb 13.9 L (14.0-18.0) g/dL Hct 42.1 (42.0-52.0) % MCV 92.7 (80-100) fl MCH 30.6 (26-34) pg MCHC 33.0 (32-36) g/dl RDW 12.0 (11.5-14.5) % Plt Count 246 (150-375) k/mm3 MPV 9.9 (7.4-10.4) fl Immature Gran % (Auto) 0.3 (0-0.5) % Neut % (Auto) 46.0 (45.5-73.1) % Lymph % (Auto) 38.6 (18.3-44.2) % [place] % (Auto) 14.1 H (2.6-8.5) % Eos % (Auto) 0.8 (0-4.4) % Baso % (Auto) 0.2 (0.2-1.2) % Lymph # (Auto) 3.88 H (0.9-3.2) K/mm3 [place] # (Auto) 1.4 H (0.1-0.6) K/mm3 Eos # (Auto) 0.1 (0-0.3) K/mm3 Baso # (Auto) 0.0 (0.0-0.1) K/mm3 Abs Immat Gran (auto) 0.03 (0.00-0.031) K/mm3 Absolute Neuts (auto) 4.6 (1.3-6.7) K/mm3 Absolute Nucleated RBC 0.000 (0.0-0.012) K/mm3 Nucleated RBC % 0.0 (0.0-0.2) % Sodium 140 (137-145) mmol/L Potassium 4.1 (3.4-5.0) mmol/L Chloride 105 (98-107) mmol/L Carbon Dioxide 25 (22-30) mmol/L Anion Gap 10 (4-12) mmol/L BUN 17 (9-20) mg/dL Creatinine 1.28 (0.7-1.3) mg/dL Estim Creat Clear Calc 57 ml/min Estimated GFR 56 L (59 - ) Glucose 125 H (65-110) mg/dL Calcium 8.9 (8.4-10.2) mg/dL Magnesium 2.3 (1.6-2.3) mg/dL Total Bilirubin 1.5 H (0.2-1.3) mg/dL AST 29 (17-59) U/L ALT 19 (6-50) U/L Alkaline Phosphatase 92 (38-126) U/L Total Creatine Kinase 220 H Cancelled (55-170) U/L Total Protein 8.6 H (6.3-8.2) g/dL Albumin 4.3 (3.5-5.1) g/dL Lipase 61 (23-300) U/L Urine Color Dark yellow (Yellow) Urine Appearance Clear (Clear) Urine pH 5.5 (5.0-9.0) Ur Specific [place] 1.040 H (1.001-1.035) Urine Protein 1+ H (Negative) mg/dL Urine Glucose (UA) Negative (Negative) mg/dL Urine Ketones Trace H (Negative) mg/dL Ur Blood (Man) Trace (Negative) Urine Nitrate Negative (Negative) Urine Bilirubin Negative (Negative) Urine Urobilinogen 2.0 H (<2.0) mg/dL Add Ur Microanalysis Reviewed Leukocyte Esterase Rfl Negative (Negative) RANDI/UL Urine RBC 6-10 H (0-2) /hpf Urine WBC 0-5 (0-3) /hpf Ur Squamous Epith Cells None seen (Few) /hpf Urine Bacteria None seen /hpf Urine Casts 3-5 Discharge Plan Discharge Clinical Impression: Abdominal pain, acute, right upper quadrant, Acute right flank pain Patient Disposition: Home Condition: Improved Instructions: Antibiotic Form, Flank Pain (ED) Additional Instructions: Please follow-up with the GI doctor you were provided with today regarding your right-sided abdominal/flank pain within the next 3-5 days. Patient is could be due to biliary colic/gallbladder disease and you recommended an outpatient ultrasound for further evaluation of your gallbladder. Return to ED if any new or worsening symptoms develop. Patient Language: Kazakh Prescriptions: No Action amoxicillin-pot clavulanate 875-125 mg tablet 1 tablet PO Q12H Qty: 4 0RF Rx Instructions: take for two more days to complete the treatment levofloxacin 750 mg tablet 750 mg PO DAILY 2 Days Qty: 2 0RF Rx Instructions: take on 09/04 and 09/06 to complete the course Follow-up/Referrals: PHYSICIAN,FURNACE STOCK INSPECTOR [Primary Care Provider, Internal Medicine] Ciaran Garcia MD [Physician, Gastroenterology] - 3 Days Time of Disposition: 23:30
[2025-03-07] MEDS: KETOROLAC 15 MG/ML VIAL (*BKC) IV PUSH (19:55)
[2025-03-07 20:32] LABS: Hematocrit 42.1 % (42.0-52.0); Hemoglobin 13.9 g/dL (14.0-18.0); Immature Granulocyte Percent A 0.3 % (0-0.5); Lymphocytes Absolute Auto 3.88 K/mm3 (0.9-3.2); Mean Corpuscular HGB Conc 33.0 g/dl (32-36); Mean Corpuscular Hemoglobin 30.6 pg (26-34); Mean Corpuscular Volume 92.7 fl (80-100); Nucleated Red Blood Cells Absolute Auto 0.000 K/mm3 (0.0-0.012); Nucleated Red Blood Cells Perc 0.0 % (0.0-0.2); Platelet Count Result 246 k/mm3 (150-375); Red Blood Count 4.54 M/mm3 (4.6-6.20); White Blood Count 10.0 K/mm3 (4.5-10.0)
[2025-03-07 20:42] LABS: Alanine Aminotransferase 19 U/L (6-50); Albumin Level 4.3 g/dL (3.5-5.1); Alkaline Phosphatase 92 U/L (38-126); Anion Gap 10 mmol/L (4-12); Aspartate Amino Transferase 29 U/L (17-59); Bilirubin,Total 1.5 mg/dL (0.2-1.3); Blood Urea Nitrogen 17 mg/dL (9-20); Calcium 8.9 mg/dL (8.4-10.2); Carbon Dioxide 25 mmol/L (22-30); Chloride 105 mmol/L (98-107); Creatine Kinase 220 U/L (55-170); Estimated CRCL calculation 57 ml/min; Estimated Glomerular Filt Rate 56; Glucose 125 mg/dL (65-110); Lipase 61 U/L (23-300); Magnesium 2.3 mg/dL (1.6-2.3); Potassium 4.1 mmol/L (3.4-5.0); Sodium 140 mmol/L (137-145); Total Protein 8.6 g/dL (6.3-8.2)
[2025-03-07] MEDS: SODIUM CHLORIDE 0.9% IV 1,000 ML 999 ML IV CONT (21:11)
[2025-03-07 22:58] LABS: Add Urine Microscopic? YES; Appearance Urine Clear (Clear); Glucose Urine UA Negative (Negative); Leukocyte Esterase Ur Negative LEU/UL (Negative); Need Manual Microscopic Reviewed; Nitrate Urine Negative (Negative); Specific Grav Ur 1.040 (1.001-1.035)
[2025-03-07 23:41] VITALS: BP 132/78; PULSE 65; RESP 18; O2SAT 97
== END 2025-03-07 23:42 | disposition home or self-care (01) ==
PROVIDERS: Emergency Provider Emergency Medicine
DX: R10.11 Right upper quadrant pain (principal); R10.31 Right lower quadrant pain
CPT/HCPCS: 36415; 73030; 74176; 80053; 81001; 82550; 83690; 83735; 85025; 96361; 96374; 99284; J1885; J7030

== ENCOUNTER 2025-03-22 18:23 | Emergency (ER) | payer MEDICARE, SELFPAY ==
--- NOTE | ~2025-03-22 | XR_ITS ---
Examination: XR chest 2V Clinical History: shortness of breath Comparison: 09/02/2024 Technique: PA and Lateral Findings: Heart size mildly enlarged. Bibasilar atelectasis and/or scarring. No acute bony abnormality. IMPRESSION: 1. No acute cardiopulmonary findings. Reviewed, dictated and finalized at location R.
[2025-03-22 18:37] VITALS: BP 144/97; PULSE 100; RESP 20; TEMP 36.4; O2SAT 96
--- NOTE | 2025-03-22 18:37 | ECG_ITS ---
Test Date: 2025-03-22 18:45:04 Measurements Intervals [place] Rate: 101 P: 45 KS: 144 QRS: 10 QRSD: 94 T: 73 QT: 363 QTc: 471 Interpretive Statements SINUS TACHYCARDIA LEFT ATRIAL ENLARGEMENT [-0.15mV P-WAVE IN V1/V2] POSSIBLE LEFT VENTRICULAR HYPERTROPHY [VOLTAGE CRITERIA PLUS LAE OR QRS WIDENING] NONSPECIFIC T-WAVE ABNORMALITY Compared to ECG 08/30/2024 14:32:14 Atrial abnormality now present Ventricular premature complex(es) no longer present T-wave abnormality still present Electronically Signed On 03-22-2025 20:27:49 CDT by Karen Cavazos M.D.
[2025-03-22 18:52] VITALS: PULSE 92
[2025-03-22 18:57] LABS: Hematocrit 40.0 % (42.0-52.0); Hemoglobin 13.1 g/dL (14.0-18.0); Immature Granulocyte Percent A 0.2 % (0-0.5); Lymphocytes Absolute Auto 2.68 K/mm3 (0.9-3.2); Mean Corpuscular HGB Conc 32.8 g/dl (32-36); Mean Corpuscular Hemoglobin 30.2 pg (26-34); Mean Corpuscular Volume 92.2 fl (80-100); Nucleated Red Blood Cells Absolute Auto 0.000 K/mm3 (0.0-0.012); Nucleated Red Blood Cells Perc 0.0 % (0.0-0.2); Platelet Count Result 346 k/mm3 (150-375); Red Blood Count 4.34 M/mm3 (4.6-6.20); White Blood Count 5.1 K/mm3 (4.5-10.0)
[2025-03-22 19:24] LABS: NT Pro B Type Natriuretic Pept 1100 pg/mL (19.9-100)
--- NOTE | 2025-03-22 19:30 | ED_ITS ---
HPI - SOB/Dyspnea General Chief Complaint: Shortness of Breath/Dyspnea Stated Complaint: SOB and BALLESTEROS Time Seen by Provider: 03/22/25 19:03 History of Present Illness HPI Narrative: 64-year-old male with past medical history including hypertension not on any blood pressure medications and uncontrolled sleep apnea. Patient presents to the emergency department today with shortness of breath and some dyspnea on exertion that he has been knows for past few weeks. Denies any history of heart failure COPD. No history of smoking. Does not take any medications. No peripheral swelling. Denies any symptoms when sitting upright or during his normal day-to-day activities but notes that when he tries to go to bed he sits down and feels like he is drowning and having to sit upright. Wakes up snoring throughout the night and gasping for air. notices that he has been snoring loudly as well. Patient otherwise has no complaints today in the examination room. He states he feels fine without any shortness a breath at rest, nausea, vomiting, headache, vision change, chest pain chest pressure. No pain associated with any these episodes. Denies having a primary care provider or any other health issues recently. Did have a pneumonia back in August of this year but states that this not feel similar. Related Data Allergies Allergy/AdvReac Type Severity Reaction Status Date / Time No Known Allergies Allergy Verified 03/22/25 18:41 Review of Systems 2 Review of Systems: As reviewed above in [facility] Social History Social History Smoking status: Never smoker Alcohol intake: current Drinks per week: 1 Substance use: never Substance use type: does not use Do You Feel Safe in your Home?: Yes Lack of Transportation: No Lack of Food: Never True Current Housing: I Have Housing Concerned About Future Housing: No Difficulty Paying Gas/Electric Bills: No Difficulty Paying for Meds: No Currently Unemployed: No Education: Decline to Answer Difficulty w/ Childcare or Family Care: No Spiritual care concerns: No Exam 2 Narrative: GENERAL: [Well-appearing, well-nourished, and in no acute distress.] HEAD: [Normocephalic, atraumatic.] EYES: [PERRLA and EOMI.] ENT: Nares clear, no rhinorrhea or epistaxis. Mucous membranes moist. NECK: Supple. CHEST: [Clear to auscultation. No respiratory distress.] HEART: [Regular rate and rhythm]. No murmur heard. [Normal peripheral pulses.] ABDOMEN: [Soft, nondistended], [nontender], [No rigidity or guarding] EXTREMITIES: Normal range of motion. [No edema.] SKIN: Warm, dry, no rash. NEURO: [No focal deficits]. Alert and oriented [x3.] PSYCH: [Normal mood and affect.] Course Vital Signs Vital signs: Vital Signs Temperature 36.4 C 03/22/25 18:37 Pulse Rate 100 03/22/25 18:37 Respiratory Rate 20 03/22/25 18:37 Blood Pressure 144/97 H 03/22/25 18:37 Pulse Oximetry 96 03/22/25 18:37 Oxygen Delivery Room Air 03/22/25 18:37 Temperature 36.4 C 03/22/25 18:37 Pulse Rate 92 03/22/25 18:52 Respiratory Rate 20 03/22/25 18:37 Blood Pressure 144/97 H 03/22/25 18:37 Pulse Oximetry 96 03/22/25 18:37 Oxygen Delivery Room Air 03/22/25 18:37 MDM - SOB/Dyspnea MDM Narrative Medical decision making narrative: 64-year-old male with past medical history including hypertension not on any blood pressure medications and uncontrolled sleep apnea. Patient presents to the emergency department today with shortness of breath and some dyspnea on exertion that he has been knows for past few weeks. Denies any history of heart failure COPD. No history of smoking. Does not take any medications. No peripheral swelling. Denies any symptoms when sitting upright or during his normal day-to-day activities but notes that when he tries to go to bed he sits down and feels like he is drowning and having to sit upright. Wakes up snoring throughout the night and gasping for air. notices that he has been snoring loudly as well. Patient otherwise has no complaints today in the examination room. He states he feels fine without any shortness a breath at rest, nausea, vomiting, headache, vision change, chest pain chest pressure. No pain associated with any these episodes. Denies having a primary care provider or any other health issues recently. Did have a pneumonia back in August of this year but states that this not feel similar. Patient has a benign physical examination, clear breath sounds, no signs of DVT or leg swelling. Strong symmetric pulses. Mildly hypertensive but no tachycardia, tachypnea, hypoxemia. Given his nighttime symptoms likely sleep apnea in nature verses early signs of congestive heart failure. He has no physical signs of fluid overload. Given his uncontrolled hypertension and uncontrolled sleep apnea he likely has some pulmonary hypertension which is also contributing this. Will rule out other potential causes such as infection and pneumonia. Two-view chest x-ray, EKG, basic laboratory studies, BNP obtained. EKG is non acutely ischemic, no ectopy or dysrhythmia. BNP mildly elevated. Chest x-ray normal. Will give him a dose of Lasix given his elevated BNP and will have to have him follow-up with primary care provider which will refer him to. Instructed to get a sleep study and a CPAP as well as see his PCP for further workup on his symptoms. Medical Records Attestation: I reviewed the patient's medical records. Lab Data Attestation: I reviewed the patient's lab results. 03/22/25 18:49 03/22/25 18:49 Labs: Lab Results 03/22/25 Range/Units 18:49 WBC 5.1 (4.5-10.0) K/mm3 RBC 4.34 L (4.6-6.20) M/mm3 Hgb 13.1 L (14.0-18.0) g/dL Hct 40.0 L (42.0-52.0) % MCV 92.2 (80-100) fl MCH 30.2 (26-34) pg MCHC 32.8 (32-36) g/dl RDW 12.0 (11.5-14.5) % Plt Count 346 (150-375) k/mm3 MPV 9.7 (7.4-10.4) fl Immature Gran % (Auto) 0.2 (0-0.5) % Neut % (Auto) 34.6 L (45.5-73.1) % Lymph % (Auto) 52.4 H (18.3-44.2) % [place] % (Auto) 10.2 H (2.6-8.5) % Eos % (Auto) 2.2 (0-4.4) % Baso % (Auto) 0.4 (0.2-1.2) % Lymph # (Auto) 2.68 (0.9-3.2) K/mm3 [place] # (Auto) 0.5 (0.1-0.6) K/mm3 Eos # (Auto) 0.1 (0-0.3) K/mm3 Baso # (Auto) 0.0 (0.0-0.1) K/mm3 Abs Immat Gran (auto) 0.01 (0.00-0.031) K/mm3 Absolute Neuts (auto) 1.8 (1.3-6.7) K/mm3 Absolute Nucleated RBC 0.000 (0.0-0.012) K/mm3 Nucleated RBC % 0.0 (0.0-0.2) % Sodium 138 (137-145) mmol/L Potassium 4.0 (3.4-5.0) mmol/L Chloride 108 H (98-107) mmol/L Carbon Dioxide 22 (22-30) mmol/L Anion Gap 8 (4-12) mmol/L BUN 14 (9-20) mg/dL Creatinine 0.93 (0.7-1.3) mg/dL Estim Creat Clear Calc 76 ml/min Estimated GFR > 60 (59 - ) Glucose 97 (65-110) mg/dL Calcium 8.7 (8.4-10.2) mg/dL Total Bilirubin 1.1 (0.2-1.3) mg/dL AST 37 (17-59) U/L ALT 22 (6-50) U/L Alkaline Phosphatase 76 (38-126) U/L NT-Pro-B Natriuret Pep 1100 H (19.9-100) pg/mL Total Protein 8.3 H (6.3-8.2) g/dL Albumin 4.1 (3.5-5.1) g/dL Imaging Data Attestation: I personally reviewed and interpreted this imaging study as follows: My impression: Impressions Chest X-Ray 03/22/25 19:11 IMPRESSION: 1. No acute cardiopulmonary findings. Discharge Plan Discharge Clinical Impression: Orthopnea, Sleep apnea in adult Patient Disposition: Home Condition: Stable Instructions: Antibiotic Form, Dyspnea (ED) Additional Instructions: Your x-ray does not show any bacterial infections or signs of lung issues. EKG is reassuring. One of your laboratory studies is slightly elevated, the BNP, which can be seen in several different processes such as early signs of congestive heart failure or pulmonary hypertension from untreated sleep apnea. No other labs appear concerning at this time and you are safe to go home and follow-up with your primary care provider and needle grinder that you are referred to during her previous admission in August. If you notice symptoms are worsening, you feel short of breath at rest, having chest pain or chest pressure, losing consciousness, notice significant swelling in her extremities or any other issues please return to the emergency department otherwise follow- up outpatient. Patient Language: Khmer Prescriptions: No Action amoxicillin-pot clavulanate 875-125 mg tablet 1 tablet PO Q12H Qty: 4 0RF Rx Instructions: take for two more days to complete the treatment levofloxacin 750 mg tablet 750 mg PO DAILY 2 Days Qty: 2 0RF Rx Instructions: take on 09/04 and 09/06 to complete the course Follow-up/Referrals: PHYSICIAN,BUSINESS DEVELOPMENT CONSULTANT [Primary Care Provider, Internal Medicine] Fareed Gongora MD [Physician, Family Practice] - 1 Week Referral Note: PCP, sleep apnea, orthopnea Angeli,Andres Anderson MD [Non-Staff, Pulmonology] - 1 Week Referral Note: Untreated sleep apnea, orthopnea Time of Disposition: 20:16
[2025-03-22] MEDS: FUROSEMIDE INJ 40 MG/4 ML VIAL 20 MG IV PUSH (19:45)
[2025-03-22 20:01] LABS: Alanine Aminotransferase 22 U/L (6-50); Albumin Level 4.1 g/dL (3.5-5.1); Alkaline Phosphatase 76 U/L (38-126); Anion Gap 8 mmol/L (4-12); Aspartate Amino Transferase 37 U/L (17-59); Bilirubin,Total 1.1 mg/dL (0.2-1.3); Blood Urea Nitrogen 14 mg/dL (9-20); Calcium 8.7 mg/dL (8.4-10.2); Carbon Dioxide 22 mmol/L (22-30); Chloride 108 mmol/L (98-107); Estimated CRCL calculation 76 ml/min; Estimated Glomerular Filt Rate > 60; Glucose 97 mg/dL (65-110); Potassium 4.0 mmol/L (3.4-5.0); Sodium 138 mmol/L (137-145); Total Protein 8.3 g/dL (6.3-8.2)
== END 2025-03-22 20:26 | disposition home or self-care (01) ==
PROVIDERS: Emergency Medicine; Emergency Provider Student in an Organized Health Care Education/Training Program
DX: R06.01 Orthopnea (principal); G47.30 Sleep apnea, unspecified; R06.02 Shortness of breath; I10 Essential (primary) hypertension
CPT/HCPCS: 36415; 71046; 80053; 83880; 85025; 93005; 96374; 99284; J1938